=== PATIENT | female | born 1965 | race Caucasian/White ===

== ENCOUNTER 2016-06-17 15:21 | Emergency (ER) | payer MEDICARE, OTHER ==
[2016-06-17] MEDS ORDERED: DIPHENHYDRAMINE HCL 50 MG/ML VIAL IV ONE ×2 (15:30→18:16)
--- NOTE | 2016-06-17 15:35 | ER Document Report ---
ED Medical Screen (RME) - General Chief Complaint: Allergic Reaction Stated Complaint: DIFFICULTY BREATHING Mode of Arrival: Wheelchair Information source: Patient, Relative Notes: 51 y/o F presents to ED c/o headache, burning, throat, abd pain, and n/v. Reports had gastric sleeve procedure approximately 1 week ago and has not been able to take any of her psych medication. States was given injection of haldol by pcp today prior to developing symptoms. I have greeted and performed a rapid initial assessment of this patient. A comprehensive ED assessment and evaluation of the patient, analysis of test results and completion of the medical decision making process will be conducted by additional ED providers. TRAVEL OUTSIDE OF THE [place] IN LAST 30 DAYS: No - Related Data Allergies/Adverse Reactions: adhesive tape [Adhesive Tape] Allergy (Severe, Verified 06/17/16 15:25) Generalized rash Past Medical History - Social History Chew tobacco use (# tins/day): No Frequency of alcohol use: None Drug Abuse: None - Past Medical History Cardiac Medical History: Reports: Hx Heart Attack - pt. 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 Denies: Hx Pacemaker - Immunizations Hx Diphtheria, Pertussis, Tetanus Vaccination: No Physical Exam - Vital signs Vitals: Temp Pulse Resp BP Pulse Ox 97.6 F 113 H 20 113/73 99 06/17/16 15:25 06/17/16 15:25 06/17/16 15:25 06/17/16 15:25 06/17/16 15:25 - General General appearance: Alert In distress: None - Respiratory Respiratory status: No respiratory distress Breath sounds: Normal - Psychological Associated symptoms: Anxious Course - Vital Signs Vital signs: Temp Pulse Resp BP Pulse Ox 97.6 F 113 H 20 113/73 99 06/17/16 15:25 06/17/16 15:25 06/17/16 15:25 06/17/16 15:25 06/17/16 15:25
[2016-06-17] MEDS ORDERED: METOCLOPRAMIDE HCL INJ/PF 10 MG/2 ML SDV IV ONE (18:16)
[2016-06-17] MEDS ORDERED: NORMAL SALINE 1000 ML 1,000 ML IV PRN (18:16)
--- NOTE | 2016-06-17 18:16 | ER Document Report ---
ED General - General Chief Complaint: Allergic Reaction Stated Complaint: DIFFICULTY BREATHING Time seen by provider: 18:15 Mode of Arrival: Wheelchair Information source: Patient Notes: This is a 50-year-old female with a history of hypertension, diabetes, obesity ( status post gastric sleeve 2 weeks ago in [place] by Dr. Sapp), history of chronic pain (status post [employer] spinal cord stimulator implant), bipolar affective disorder (followed by [facility], Dr. Haddad). The patient presents to the emergency room with nausea and vomiting since having the gastric sleeve. Patient was seen in by the psychiatrist today and given a shot she felt short of breath and she was having some "burning in the back of her throat" and they were concerned about allergic reaction and she was transferred here. He shouldn't states she's not really been tolerating fluids and she feels dehydrated. TRAVEL OUTSIDE OF THE [place] IN LAST 30 DAYS: No - HPI Onset: Last week Onset/Duration: Gradual Quality of pain: Dull Severity: Moderate Pain Level: 2 Associated symptoms: Nausea, Vomiting. denies: Chills, Fever, Shortness of breath Exacerbated by: Denies Relieved by: Denies Similar symptoms previously: Yes Recently seen / treated by doctor: Yes - Related Data Allergies/Adverse Reactions: adhesive tape [Adhesive Tape] Allergy (Severe, Verified 06/17/16 15:25) Generalized rash Past Medical History - General Information source: Patient, Relative - Social History Smoking Status: Never Smoker Cigarette use (# per day): No Chew tobacco use (# tins/day): No Frequency of alcohol use: None Drug Abuse: None Lives with: Family Family History: Reviewed & Not Pertinent Patient has suicidal ideation: No Patient has homicidal ideation: No - Past Medical History Cardiac Medical History: Reports: Hx Heart Attack - pt. 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 Denies: Hx Pacemaker - Immunizations Hx Diphtheria, Pertussis, Tetanus Vaccination: No Review of Systems - Review of Systems Notes: Review of systems: Constitutional: Denies fever, chills. EENT: Denies ear pain, sinus tenderness, throat pain, throat swelling. Cardiovascular: Denies chest pain, palpitations, dyspnea or edema. Respiratory: Denies wheezing, cough, hemoptysis. Abdomen: See H&P Genitourinary: Denies dysuria, pyuria, hematuria, flank pain. Musculoskeletal: denies joint pain or swelling, denies back pain. Neurologic: Denies headache, photophobia, neck stiffness, weakness. Denies loss of bowel or bladder function. Denies saddle anesthesia. Skin: Denies rash, lesions. Physical Exam - Vital signs Vitals: Temp Pulse Resp BP Pulse Ox 97.6 F 113 H 20 113/73 99 06/17/16 15:25 06/17/16 15:25 06/17/16 15:25 06/17/16 15:25 06/17/16 15:25 Notes: Physical exam: GENERAL: 51-year-old female, alert and oriented 3, appears dehydrated. HEAD: Atraumatic, normocephalic. EYES: Pupils equal round and reactive to light, extraocular movements intact, sclera anicteric, conjunctiva are normal. ENT: TMs normal, nares patent, oropharynx clear without exudates. Moist mucous membranes. NECK: Normal range of motion, supple without lymphadenopathy or JVD. LUNGS: Breath sounds clear to auscultation bilaterally and equal. No wheezes rales or rhonchi. HEART: Regular rate and rhythm without murmurs, rubs or gallops. ABDOMEN: Soft, normoactive bowel sounds. Abdominal scars mildly erythematous, no fluctuance/pus discharge or any significant changes. No tenderness to palpation. No guarding, no rebound. No masses appreciated. EXTREMITIES: Normal range of motion, no pitting or edema. No clubbing or cyanosis. NEUROLOGICAL: Cranial nerves II through XII grossly intact. Normal speech, normal gait. PSYCH: Normal mood, normal affect. SKIN: Warm, Dry, normal turgor, no rashes or lesions noted. Course - Re-evaluation Re-evalutation: 06/17/16 21:23 Note: Patient reports decreased by mouth intake, nausea and vomiting. I did give her some IV fluids, IV antiemetics. Clinically, her abdomen was soft and there was no evidence of bowel obstruction. However, given the recent abdominal sleeve, we did do a CT and that shows no obstruction. Regarding the migraine: Patient started to complain of a headache after we started treated with IV fluids and nausea medicine for the vomiting. She was treated with IV morphine and that seemed to take her headache away. The plan will be to follow up with her surgeon as planned as well as her primary care doctor and her psychiatrist. - Vital Signs Vital signs: Temp Pulse Resp BP Pulse Ox 99.1 F 113 H 20 113/73 99 06/17/16 18:33 06/17/16 15:25 06/17/16 15:25 06/17/16 15:25 06/17/16 15:25 - Laboratory Result Diagrams: 06/17/16 18:30 06/17/16 18:30 Laboratory results interpreted by me: 06/17/16 06/17/16 18:30 18:30 WBC 11.9 H MCV 79 L MCH 26.8 L RDW 16.2 H Plt Count 549 H Glucose 297 H Calcium 11.9 H - Diagnostic Test Radiology reviewed: Image reviewed, Reports reviewed - CT of the abdomen shows no evidence of obstruction Discharge - Discharge Clinical Impression: dehydration, vomiting, migraine Condition: Stable Disposition: HOME, SELF-CARE Instructions: Nausea or Vomiting, Nonspecific ([facility]) Additional Instructions: As discussed: The CAT scan looked good tonight. There is no evidence of obstruction. Your labs looked okay. Your sugar was a little elevated. Recommendations: Rest, drink plenty of fluids (a little at a time), advance diet slowly. Take the Phenergan suppositories for nausea. Take the hydrocodone liquid for pain Follow-up with your surgeon as planned: Call for an earlier appointment Follow-up with your primary care doctor. Bring a copy of today's labs and CT report with you when you go see the surgeon and Dr. Erazo. Prescriptions: Hydrocodone/Acetaminophen [Hydrocodone-Apap Solution] 15 ml PO Q6HP PRN #90 solution PRN Reason: Promethazine HCl [Phenergan 25 mg Supp.rect] 1 supp WY Q6H #12 supp.rect Referrals: FEDERICO ERAZO MD [Primary Care Provider] - Follow up in 3-5 days
[2016-06-17 18:49] LABS: ABSOLUTE BASOPHILS # (AUTO) 0.1 10^3/uL (0.0-0.2); ABSOLUTE EOSINOPHILS # (AUTO) 0.2 10^3/uL (0.0-0.6); ABSOLUTE LYMPHOCYTES (AUTO) 3.7 10^3/uL (0.5-4.7); ABSOLUTE NEUT (AUTO) 6.8 10^3/uL (1.7-8.2); BASOPHILS % (AUTO) 1.1 % (0-2); EOSINOPHILS % (AUTO) 2.1 % (0-6); HEMATOCRIT 37.4 % (36.0-47.0); HEMOGLOBIN 12.7 g/dL (12.0-15.5); HGB HCT DIFFERENCE 0.7; LYMPHOCYTES % (AUTO) 31.2 % (13-45); MEAN CORPUSCULAR HEMOGLOBIN 26.8 pg (27.0-33.4); MEAN CORPUSCULAR HGB CONC 33.9 g/dL (32.0-36.0); MEAN CORPUSCULAR VOLUME 79 fl (80-97); MONOCYTES % (AUTO) 8.5 % (3-13); RED BLOOD COUNT 4.73 10^6/uL (3.72-5.28); RED CELL DISTRIBUTION WIDTH 16.2 % (11.5-14.0); SEGMENTED NEUTROPHILS % (AUTO) 57.1 % (42-78); WHITE BLOOD COUNT 11.9 10^3/uL (4.0-10.5)
[2016-06-17 19:06] LABS: ALANINE AMINOTRANSFERASE 20 U/L (9-52); ALBUMIN 3.9 g/dL (3.5-5.0); ALKALINE PHOSPHATASE 119 U/L (38-126); ANION GAP 14 (5-19); ASPARTATE AMINO TRANSFERASE 14 U/L (14-36); BLOOD UREA NITROGEN 18 mg/dL (7-20); CALCIUM 11.9 mg/dL (8.4-10.2); CARBON DIOXIDE 28 mmol/L (22-30); CHLORIDE 99 mmol/L (98-107); CREATININE RESULT 0.81 mg/dL (0.52-1.25); GLUCOSE 297 mg/dL (75-110); POTASSIUM 4.2 mmol/L (3.6-5.0); SODIUM 141.3 mmol/L (137-145)
[2016-06-17] MEDS ORDERED: ONDANSETRON HCL INJ/PF 4 MG/2 ML SDV IV ONE (19:14)
[2016-06-17] MEDS ORDERED: MORPHINE SULFATE 10 MG/ML INJ IV ONE ×2 (19:38→21:14)
--- NOTE | 2016-06-17 21:04 | EKG REPORT ---
SEVERITY:- BORDERLINE ECG - SINUS RHYTHM PROBABLE LEFT ATRIAL ABNORMALITY BORDERLINE R WAVE PROGRESSION, ANTERIOR LEADS : Confirmed by: Jose Mills MD 17-Jun-2016 21:03:08
[2016-06-17] MEDS ORDERED: PROMETHAZINE HCL 25 MG SUPP (4 SUPP/ER DISP) PR ONE (21:14)
[2016-06-17] MEDS ORDERED: PROMETHAZINE HCL 25 MG SUPP.RECT PR ONE (21:14)
[2016-06-18 02:28] VITALS: BP 154/78
== END 2016-06-17 22:55 | disposition home or self-care (01) ==
LOC: ER 15:21
DX: G43.909 Migraine, unspecified, not intractable, without status migrainosus (principal); E86.0 Dehydration; R11.2 Nausea with vomiting, unspecified; T78.40XA Allergy, unspecified, initial encounter; R06.02 Shortness of breath
CPT/HCPCS: 93005; 99285; 96361; 96374; 96375; 36415; 85025; 80053; 74176; 93010; J1200; A9270; J2765; J2270; J2405; J7030; J3490

== ENCOUNTER → 2016-07-04 | Outpatient (CLI) | payer MEDICARE, OTHER | LOC: OD 14:52 | PROVIDERS: ATTEND Family Medicine | DX: R05 Cough (principal) | CPT/HCPCS: 71020 ==

== ENCOUNTER 2017-05-20 15:09 | Emergency (ER) | payer MEDICARE, OTHER ==
--- NOTE | 2017-05-20 17:16 | ER Document Report ---
ED Medical Screen (RME) - General Chief Complaint: Flu Symptoms Stated Complaint: FLU SYMPTOMS Time Seen by Provider: 05/20/17 16:46 Mode of Arrival: Ambulatory Information source: Patient Notes: Patient is a 51 year old female with a history of depression presents to the emergency department complaining of flulike symptoms including chills, chest pain, abdominal pain, diarrhea and vomiting onset 3 days ago. Patient states that her chest pain only occurs when she is vomiting. Patient also complains of a low-grade fever of 99.8 and decreased appetite. TRAVEL OUTSIDE OF THE [place] IN LAST 30 DAYS: No - Related Data Allergies/Adverse Reactions: adhesive tape [Adhesive Tape] Allergy (Severe, Verified 05/20/17 15:12) Generalized rash Past Medical History - General Information source: Patient - Social History Chew tobacco use (# tins/day): No Frequency of alcohol use: None Drug Abuse: None - Past Medical History Cardiac Medical History: Reports: Hx Heart Attack - pt. 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 Psychiatric Medical History: Reports: Hx Bipolar Disorder, Hx Schizophrenia Past Surgical History: Reports: Hx Abdominal Surgery - gastrobypass in 12/05, Hx Hysterectomy, Hx Orthopedic Surgery - Immunizations Hx Diphtheria, Pertussis, Tetanus Vaccination: No Review of Systems - Review of Systems Constitutional: See HPI, Chills EENT: No symptoms reported Cardiovascular: See HPI, Chest pain Respiratory: No symptoms reported Gastrointestinal: See HPI, Abdominal pain, Diarrhea, Nausea, Vomiting Genitourinary: No symptoms reported Female Genitourinary: No symptoms reported Musculoskeletal: No symptoms reported Skin: No symptoms reported Hematologic/Lymphatic: No symptoms reported Neurological/Psychological: No symptoms reported -: Yes All other systems reviewed and negative Physical Exam - Vital signs Vitals: Temp Pulse Resp BP Pulse Ox 99.2 F 85 18 107/72 100 05/20/17 15:21 05/20/17 15:21 05/20/17 15:21 05/20/17 15:21 05/20/17 15:21 - Notes Notes: GENERAL: Alert, interacts well. No acute distress. HEAD: Normocephalic, atraumatic. EYES: Pupils equal, round, and reactive to light. Extraocular movements intact. ENT: Oral mucosa moist, tongue midline. Clear oropharynx. NECK: Full range of motion. Supple. Trachea midline. LUNGS: Clear to auscultation bilaterally, no wheezes, rales, or rhonchi. No respiratory distress. HEART: Regular rate and rhythm. No murmurs, gallops, or rubs. ABDOMEN: Soft, non-tender. Non-distended. Bowel sounds present in all 4 quadrants. EXTREMITIES: Moves all 4 extremities spontaneously. N NEUROLOGICAL: Alert and oriented x3. Normal speech. PSYCH: Normal affect, normal mood. SKIN: Warm, dry, normal turgor. No rashes or lesions noted. Course - Vital Signs Vital signs: Temp Pulse Resp BP Pulse Ox 99.2 F 85 18 107/72 100 05/20/17 15:21 05/20/17 15:21 05/20/17 15:21 05/20/17 15:21 05/20/17 15:21 - Laboratory Result Diagrams: 05/20/17 17:55 05/20/17 17:55 Scribe Documentation - Scribe Written by Travis:: Travis Maxwell, 05/20/2017 17:15 acting as scribe for :: Al
[2017-05-20] MEDS ORDERED: NORMAL SALINE 1000 ML 1,000 ML IV ONE (17:43)
[2017-05-20] MEDS ORDERED: ONDANSETRON HCL INJ/PF 4 MG/2 ML SDV IV ONE (17:44)
[2017-05-20 18:27] LABS: ALANINE AMINOTRANSFERASE 30 U/L (9-52); ALBUMIN 4.8 g/dL (3.5-5.0); ALKALINE PHOSPHATASE 109 U/L (38-126); ANION GAP 11 (5-19); ASPARTATE AMINO TRANSFERASE 20 U/L (14-36); BILIRUBIN,DIRECT 0.2 mg/dL (0.0-0.4); BILIRUBIN,TOTAL 0.8 mg/dL (0.2-1.3); BLOOD UREA NITROGEN 22 mg/dL (7-20); CALCIUM 10.9 mg/dL (8.4-10.2); CARBON DIOXIDE 27 mmol/L (22-30); CHLORIDE 101 mmol/L (98-107); GLUCOSE 253 mg/dL (75-110); MAGNESIUM 1.4 mg/dL (1.6-2.3); POTASSIUM 4.9 mmol/L (3.6-5.0); SODIUM 138.7 mmol/L (137-145); TOTAL PROTEIN 8.2 g/dL (6.3-8.2)
[2017-05-20 18:44] LABS: ABSOLUTE BASOPHILS # (AUTO) 0.1 10^3/uL (0.0-0.2); ABSOLUTE EOSINOPHILS # (AUTO) 0.1 10^3/uL (0.0-0.6); ABSOLUTE LYMPHOCYTES (AUTO) 4.3 10^3/uL (0.5-4.7); ABSOLUTE MONOCYTES (AUTO) 0.7 10^3/uL (0.1-1.4); ABSOLUTE NEUT (AUTO) 5.4 10^3/uL (1.7-8.2); BASOPHILS % (AUTO) 1.2 % (0-2); HEMATOCRIT 30.4 % (36.0-47.0); HEMOGLOBIN 9.2 g/dL (12.0-15.5); LYMPHOCYTES % (AUTO) 40.5 % (13-45); MEAN CORPUSCULAR HEMOGLOBIN 17.9 pg (27.0-33.4); MEAN CORPUSCULAR HGB CONC 30.3 g/dL (32.0-36.0); MONOCYTES % (AUTO) 6.8 % (3-13); PLATELET COUNT 480 10^3/uL (150-450); RED BLOOD COUNT 5.15 10^6/uL (3.72-5.28); RED CELL DISTRIBUTION WIDTH 17.2 % (11.5-14.0); SEGMENTED NEUTROPHILS % (AUTO) 50.5 % (42-78); TOTAL CELLS COUNTED % (AUTO) 100 %; WHITE BLOOD COUNT 10.7 10^3/uL (4.0-10.5)
[2017-05-20 19:12] LABS: ANISOCYTOSIS 1+; HYPOCHROMASIA 3+; MEAN CORPUSCULAR VOLUME 59 fl (80-97); PLATELET COMMENT ADEQUATE; POIKILOCYTOSIS SLIGHT; ROULEAUX SLIGHT; TARGET CELLS SLIGHT; TEAR DROP CELLS SLIGHT
[2017-05-20] MEDS: MORPHINE SULFATE 10 MG/ML INJ IV PRN ×2 (19:40→21:40)
[2017-05-20] MEDS ORDERED: PROCHLORPERAZINE EDISYLATE INJ 10 MG/2 ML VIAL IV ONE (20:06)
--- NOTE | 2017-05-20 20:09 | ER Document Report ---
ED General - General Chief Complaint: Flu Symptoms Stated Complaint: FLU SYMPTOMS Time Seen by Provider: 05/20/17 16:46 Mode of Arrival: Ambulatory Notes: Patient is a 51-year-old female with past medical history of gastric bypass surgery who presents with 3 days of nausea, vomiting and diarrhea. She is also felt feverish, achy with an associated cough. Nothing improves or worsens her symptoms. She does note a constant, diffuse body ache that has been unchanged since onset. She has had subjective fever at home. No known sick contacts. She denies a history of similar symptoms in the past. She has not seen her primary doctor regarding today's concerns. She denies any shortness of breath, headache, neck pain, weakness, numbness or syncope. She denies any localized abdominal pain. No melena, hematochezia or hemoptysis. TRAVEL OUTSIDE OF THE [place] IN LAST 30 DAYS: No - Related Data Allergies/Adverse Reactions: adhesive tape [Adhesive Tape] Allergy (Severe, Verified 05/20/17 15:12) Generalized rash Past Medical History - General Information source: Patient - Social History Smoking Status: Never Smoker Chew tobacco use (# tins/day): No Frequency of alcohol use: None Drug Abuse: None Lives with: Spouse/Significant other Family History: Reviewed & Not Pertinent Patient has suicidal ideation: No Patient has homicidal ideation: No - Past Medical History Cardiac Medical History: Reports: Hx Heart Attack - pt. 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 Eyes: Negative for visual changes. Cardiovascular: Negative for chest pain. Respiratory: Positive for cough Gastrointestinal: Negative for abdominal pain, positive for vomiting diarrhea Genitourinary: Negative for dysuria. Musculoskeletal: Negative for back pain. Skin: Negative for rash. Neurological: Negative for headaches, weakness or numbness. 10 point ROS negative except as marked above and in HPI. Physical Exam - Vital signs Vitals: Temp Pulse Resp BP Pulse Ox 99.2 F 85 18 107/72 100 05/20/17 15:21 05/20/17 15:21 05/20/17 15:21 05/20/17 15:21 05/20/17 15:21 Interpretation: Normal Notes: PHYSICAL EXAMINATION: GENERAL: Appears somewhat uncomfortable but in no acute distress HEAD: Atraumatic, normocephalic. EYES: Pupils equal round and reactive to light, extraocular movements intact, sclera anicteric, conjunctiva are normal. ENT: nares patent, oropharynx clear without exudates. Moderately dry mucous membranes. NECK: Normal range of motion, supple without lymphadenopathy LUNGS: Breath sounds clear to auscultation bilaterally and equal. No wheezes rales or rhonchi. HEART: Regular rate and rhythm without murmurs ABDOMEN: Soft, nontender, normoactive bowel sounds. No guarding, no rebound. No masses appreciated. Rectal: Brown stool, no gross blood or melena EXTREMITIES: Normal range of motion, no pitting or edema. No cyanosis. NEUROLOGICAL: No focal neurological deficits. Moves all extremities spontaneously and on command. PSYCH: Normal mood, normal affect. SKIN: Warm, Dry, normal turgor, no rashes or lesions noted. Course - Re-evaluation Re-evalutation: 05/20/17 20:07 Patient presents with cough, vomiting, diarrhea, and fever at home consistent with a flulike illness although our flu test here is negative. Sensitivity for this years flu assay is apparently 91-92%. Clinical history and exam is not consistent with an acute bacterial meningitis, encephalitis, pneumonia, there is no evidence of a cellulitis on examination. Patient likewise denies any urinary symptoms. Chest x-ray is clear without any evidence of an acute pneumonia. Patient does not have any focal abdominal tenderness to suggest an acute biliary pathology, acute appendicitis, acute mesenteric ischemia, bowel obstruction, bowel, or any other life-threatening acute intra-abdominal pathology as the etiology of the fever and additional symptoms today. Labs are otherwise unremarkable. Patient is tolerated oral intake without difficulty. Patient is noted to be with a microcytic anemia that appears to be quite acute. She has had a gastric bypass surgery within the past 1 year and admits to noncompliance with iron supplementation. She denies any melena, hematochezia, or hematemesis. rectal exam without any evidence of gross blood or melena. She has been instructed to take her iron supplementation as directed and follow- up with her primary care doctor for formal iron testing. Vitals at time of reassessment are within normal limits. At this time will discharge with return precautions and follow-up recommendations. Verbal discharge instructions given a the bedside and opportunity for questions given. Medication warnings reviewed. Patient is in agreement with this plan and has verbalized understanding of return precautions and the need for primary care follow-up in the next 24-72 hours. - Vital Signs Vital signs: Temp Pulse Resp BP Pulse Ox 98.9 F 84 20 110/65 98 05/20/17 21:48 05/20/17 21:48 05/20/17 21:48 05/20/17 21:48 05/20/17 21:48 - Laboratory Result Diagrams: 05/20/17 17:55 05/20/17 17:55 Laboratory results interpreted by me: 05/20/17 05/20/17 17:55 17:55 WBC 10.7 H Hgb 9.2 L Hct 30.4 L MCV 59 L MCH 17.9 L MCHC 30.3 L RDW 17.2 H Plt Count 480 H BUN 22 H Glucose 253 H Calcium 10.9 H Magnesium 1.4 L - Diagnostic Test Radiology reviewed: Image reviewed, Reports reviewed Radiology results interpreted by me: 05/21/17 04:15 Chest x-ray: No acute infiltrate or pneumothorax Discharge - Discharge Clinical Impression: Vomiting and diarrhea, Microcytic anemia, Cough Fever Qualifiers: Fever type: unspecified Qualified Code(s): R50.9 - Fever, unspecified Condition: Good Disposition: HOME, SELF-CARE Additional Instructions: Your symptoms are likely due to a viral infection either influenza or similar virus. The only treatment at this time is supportive care including drinking plenty of fluids, Tylenol and ibuprofen, as well as nausea medicines which you will be sent home with. Your symptoms will likely last for 7-10 days. Please return to the emergency department immediately if you become confused, have persistent vomiting, pass out, have severe headache, or have any other symptoms that are worrisome to you. Follow-up with your primary care doctor in the next several days. You also needs follow-up with your primary doctor regarding the anemia as we discussed. You should be taking your iron supplements as prescribed. Referrals: EDUARD ERAZO, [Primary Care Provider] - Follow up as needed
--- NOTE | 2017-05-20 21:01 | RADIOLOGY REPORT (SQ) ---
EXAM DESCRIPTION: CHEST SINGLE VIEW COMPLETED DATE/TIME: 05/20/2017 8:29 pm REASON FOR STUDY: fever, cough COMPARISON: 2017. NUMBER OF VIEWS: One view. TECHNIQUE: Single frontal radiographic view of the chest acquired. LIMITATIONS: None. FINDINGS: LUNGS AND PLEURA: No opacities, masses or pneumothorax. No pleural effusion. MEDIASTINUM AND HILAR STRUCTURES: No masses. Contour normal. HEART AND VASCULAR STRUCTURES: Heart normal in size. Normal vasculature. BONES: No acute findings. HARDWARE: Spinal stimulator leads in place, as before. OTHER: No other significant finding. IMPRESSION: NO SIGNIFICANT RADIOGRAPHIC FINDING IN THE CHEST. TECHNICAL DOCUMENTATION: JOB ID: [id number] [facility] [employer]- All Rights Reserved
[2017-05-20] MEDS ORDERED: ONDANSETRON ODT 4 MG TAB (6 TAB/ER DISP) PO PRN (21:08)
[2017-05-20 21:15] LABS: A TYPE INFLUENZA AG NEGATIVE (NEGATIVE); B INFLUENZA AG NEGATIVE (NEGATIVE)
[2017-05-20 21:49] VITALS: BP 110/65
[2017-05-21 14:38] LABS: PATH REVIEW PATHOLOGIST REVIEWED
== END 2017-05-20 21:48 | disposition home or self-care (01) ==
LOC: ER 15:09
DX: R11.2 Nausea with vomiting, unspecified (principal); R19.7 Diarrhea, unspecified; D50.9 Iron deficiency anemia, unspecified; Z98.84 Bariatric surgery status; I25.2 Old myocardial infarction; Z90.710 Acquired absence of both cervix and uterus
CPT/HCPCS: 96376; 99284; 96361; 96374; 96375; 36415; 83735; 85025; 82272; 80053; 87804; 71045; J2270; J0780; J2405; J7030; A9270

== ENCOUNTER → 2017-07-02 | Outpatient (CLI) | payer MEDICARE, OTHER ==
--- NOTE | 2017-07-02 12:32 | WOMENS IMAGING REPORT ---
EXAM DESCRIPTION: BILAT SCREENING MAMMO W/CAD COMPLETED DATE/TIME: 07/02/2017 11:59 am REASON FOR STUDY: ROUTINE SCREENING;Z12.31 Z12.31 ENCNTR SCREEN MAMMOGRAM FOR MALIGNANT NEOPLASM OF LUPE COMPARISON: May 2013 and November 2010 TECHNIQUE: Standard craniocaudal and mediolateral oblique views of each breast recorded using [employer] l acquisition. LIMITATIONS: None. FINDINGS: No masses, calcifications or architectural distortion. No areas of suspicion. Read with the assistance of CAD. .[facility] - R2 Cenova Version 1.3 .[facility] - R2 Cenova Version 1.3 .[facility] - R2 Cenova Version 2.4 .[facility] [place] - R2 Cenova Version 2.4 .[facility] - R2 [employer] Version 9.2 IMPRESSION: NORMAL MAMMOGRAM. BIRADS 1. BREAST DENSITY: c. The breasts are heterogeneously dense, which may obscure small masses. BIRAD: 1 NEGATIVE RECOMMENDATION: ROUTINE SCREENING COMMENT: The patient has been notified of the results by letter per SA requirements. Additional no tification policies are in place for contacting patient with suspicious or incomplete findings. Quality ID #[id number]: The [employer] recommends an annual screening mammogram for women aged 40 years or over. This facility utilizes a reminder system to ensure that all patients receive reminder letters, and/or direct phone calls for appointments. This includes reminders for routine scr eening mammograms, diagnostic mammograms, or other Breast Imaging Interventions when appropriate. Th is patient will be placed in the appropriate reminder system. The [employer] (ACR) has developed recommendations for screening MRI of the breast s in certain patient populations, to be used in conjunction with mammography. Breast MRI surveillanc e may be appropriate for women with more than 20% lifetime risk of developing breast cancer as deter mined by genetic testing, significant family history of the disease, or history of mantle radiation f or Hodgkins Disease. ACR Practice Guidelines 2008. TECHNICAL DOCUMENTATION: FINDING NUMBER: (1) ASSESSMENT: (1) JOB ID: [id number] [employer]- All Rights Reserved Reading location - IP/workstation name: [facility]
== END ==
LOC: WI 10:02
PROVIDERS: ATTEND Physician Assistant Medical
DX: Z12.31 Encounter for screening mammogram for malignant neoplasm of breast (principal)
CPT/HCPCS: 77067

== ENCOUNTER → 2017-09-22 | Outpatient (CLI) | payer MEDICARE, OTHER ==
[2017-09-22 08:44] LABS: ABSOLUTE BASOPHILS # (AUTO) 0.1 10^3/uL (0.0-0.2); ABSOLUTE EOSINOPHILS # (AUTO) 0.3 10^3/uL (0.0-0.6); ABSOLUTE LYMPHOCYTES (AUTO) 4.1 10^3/uL (0.5-4.7); ABSOLUTE MONOCYTES (AUTO) 0.8 10^3/uL (0.1-1.4); ABSOLUTE NEUT (AUTO) 5.4 10^3/uL (1.7-8.2); BASOPHILS % (AUTO) 1.2 % (0-2); EOSINOPHILS % (AUTO) 2.7 % (0-6); HEMATOCRIT 30.5 % (36.0-47.0); HEMOGLOBIN 9.2 g/dL (12.0-15.5); LYMPHOCYTES % (AUTO) 38.4 % (13-45); MEAN CORPUSCULAR HEMOGLOBIN 17.7 pg (27.0-33.4); MEAN CORPUSCULAR HGB CONC 30.1 g/dL (32.0-36.0); MONOCYTES % (AUTO) 7.4 % (3-13); PLATELET COUNT 428 10^3/uL (150-450); RED CELL DISTRIBUTION WIDTH 19.2 % (11.5-14.0); SEGMENTED NEUTROPHILS % (AUTO) 50.3 % (42-78); TOTAL CELLS COUNTED % (AUTO) 100 %; WHITE BLOOD COUNT 10.7 10^3/uL (4.0-10.5)
[2017-09-22 08:59] LABS: ANION GAP 11 (5-19); BLOOD UREA NITROGEN 16 mg/dL (7-20); CARBON DIOXIDE 27 mmol/L (22-30); CHLORIDE 101 mmol/L (98-107); GLUCOSE 351 mg/dL (75-110); POTASSIUM 4.5 mmol/L (3.6-5.0); SODIUM 139.2 mmol/L (137-145)
[2017-09-22 09:09] LABS: MEAN CORPUSCULAR VOLUME 59 fl (80-97)
[2017-09-22 09:13] LABS: ANISOCYTOSIS 2+; HYPOCHROMASIA 4+; OVALOCYTES 1+; PLATELET COMMENT ADEQUATE; POIKILOCYTOSIS 1+
--- NOTE | 2017-09-22 09:44 | RADIOLOGY REPORT (SQ) ---
EXAM DESCRIPTION: KUB COMPLETED DATE/TIME: 09/22/2017 8:36 am REASON FOR STUDY: UPPER ABDOMINAL PAIN E11.9 TYPE 2 DIABETES MELLITUS WITHOUT COMPLICATIONS F41.9 ANXIETY DISORDER, UNSPECIFIED L53.8 OTHER SPECIFIED ERYTHEMATOUS CONDITIONS COMPARISON: None. NUMBER OF VIEWS: One view. TECHNIQUE: Supine radiographic image of the abdomen acquired. LIMITATIONS: None. FINDINGS: BOWEL GAS PATTERN: Normal bowel gas pattern. No dilated loops. CALCIFICATIONS: No suspicious calcifications. SOFT TISSUES: No gross mass or suggestion of organomegaly. HARDWARE: Neural stimulating catheter with the tips overlying the T6-T7 and T9-T10 disc spaces. Mul tiple surgical sutures in the left upper- mid quadrant of the abdomen. BONES: Hardware posterior fusion L5-S1. No acute fracture. No worrisome bone lesions. OTHER: No other significant finding. IMPRESSION: NO RADIOGRAPHIC EVIDENCE FOR ACUTE ABDOMINAL DISEASE. TECHNICAL DOCUMENTATION: JOB ID: [id number] [employer]- All Rights Reserved Reading location - IP/workstation name: [email or web address]
== END ==
LOC: OD 08:08
PROVIDERS: ATTEND Physician Assistant Medical
DX: E11.9 Type 2 diabetes mellitus without complications (principal); F41.9 Anxiety disorder, unspecified; L53.8 Other specified erythematous conditions; R10.10 Upper abdominal pain, unspecified
CPT/HCPCS: 36415; 74018; 80048; 85025

== ENCOUNTER → 2018-03-01 | Outpatient (CLI) | payer MEDICARE, OTHER ==
[2018-03-01 11:45] LABS: RBCS (WET MOUNT) RARE RBCS SEEN; T.VAGINALIS (WET MOUNT) NO TRICHOMONAS SEEN; WBCS (WET MOUNT) 1+ WBCS SEEN; YEAST (WET MOUNT) NO YEAST SEEN
== END ==
LOC: LAB 11:20
PROVIDERS: ATTEND Nurse Practitioner Family
DX: B37.3 Candidiasis of vulva and vagina (principal); R30.0 Dysuria
CPT/HCPCS: 87086; 87088; 87186; 87210

== ENCOUNTER → 2018-04-09 | Outpatient (CLI) | payer MEDICARE, OTHER ==
[2018-04-09 11:30] LABS: ABSOLUTE BASOPHILS # (AUTO) 0.1 10^3/uL (0.0-0.2); ABSOLUTE EOSINOPHILS # (AUTO) 0.5 10^3/uL (0.0-0.6); ABSOLUTE LYMPHOCYTES (AUTO) 3.7 10^3/uL (0.5-4.7); ABSOLUTE MONOCYTES (AUTO) 0.9 10^3/uL (0.1-1.4); ABSOLUTE NEUT (AUTO) 5.9 10^3/uL (1.7-8.2); BASOPHILS % (AUTO) 1.3 % (0-2); EOSINOPHILS % (AUTO) 4.2 % (0-6); HEMATOCRIT 28.3 % (36.0-47.0); HEMOGLOBIN 8.7 g/dL (12.0-15.5); LYMPHOCYTES % (AUTO) 33.3 % (13-45); MEAN CORPUSCULAR HEMOGLOBIN 18.4 pg (27.0-33.4); MEAN CORPUSCULAR HGB CONC 30.7 g/dL (32.0-36.0); MEAN CORPUSCULAR VOLUME 60 fl (80-97); MONOCYTES % (AUTO) 7.7 % (3-13); PLATELET COUNT 607 10^3/uL (150-450); RED BLOOD COUNT 4.73 10^6/uL (3.72-5.28); RED CELL DISTRIBUTION WIDTH 19.6 % (11.5-14.0); SEGMENTED NEUTROPHILS % (AUTO) 53.5 % (42-78); TOTAL CELLS COUNTED % (AUTO) 100 %
[2018-04-09 11:53] LABS: ALANINE AMINOTRANSFERASE 7 U/L (9-52); ALBUMIN 4.3 g/dL (3.5-5.0); ALKALINE PHOSPHATASE 78 U/L (38-126); ANION GAP 11 (5-19); ASPARTATE AMINO TRANSFERASE 20 U/L (14-36); BILIRUBIN,DIRECT 0.3 mg/dL (0.0-0.4); BILIRUBIN,TOTAL 0.3 mg/dL (0.2-1.3); BLOOD UREA NITROGEN 23 mg/dL (7-20); CALCIUM 9.8 mg/dL (8.4-10.2); CARBON DIOXIDE 27 mmol/L (22-30); CHLORIDE 102 mmol/L (98-107); GLUCOSE 252 mg/dL (75-110); POTASSIUM 5.1 mmol/L (3.6-5.0); SODIUM 139.7 mmol/L (137-145); TOTAL PROTEIN 7.4 g/dL (6.3-8.2)
[2018-04-09 12:13] LABS: ANISOCYTOSIS 2+; HYPOCHROMASIA 3+; OVALOCYTES 1+; PLATELET COMMENT INCREASED; POIKILOCYTOSIS 1+
== END ==
LOC: OD 10:20
PROVIDERS: ATTEND Physician Assistant
DX: F31.31 Bipolar disorder, current episode depressed, mild (principal); Z79.899 Other long term (current) drug therapy
CPT/HCPCS: 36415; 80053; 80164; 83036; 85025

== ENCOUNTER → 2018-06-02 | Outpatient (CLI) | payer MEDICARE, OTHER | LOC: OD 11:42 | PROVIDERS: ATTEND Family Medicine | DX: R19.7 Diarrhea, unspecified (principal); D64.9 Anemia, unspecified | CPT/HCPCS: 82272; 87045; 87205; 87493 ==

== ENCOUNTER 2018-06-29 20:31 | Emergency (ER) | payer MEDICARE, OTHER ==
[2018-06-29 20:45] VITALS: BP 104/65
--- NOTE | 2018-06-30 00:26 | ER Document Report ---
ED GI/ - General Chief Complaint: Abdominal Pain/Diarrhea Stated Complaint: SIDE PAIN,DIAHRREA Time Seen by Provider: 06/30/18 00:25 Primary Care Provider: HARRIETT AU MD [Primary Care Provider] - Follow up as needed Mode of Arrival: Ambulatory Information source: Patient Notes: HISTORY OF PRESENT ILLNESS: Patient is a 53-year-old female with a past medical history of ulcerative colitis who presents with nonbloody/watery diarrhea for the past month and left lower quadrant abdominal pain beginning 1 week ago. Location: Left lower quadrant Onset: Gradual Alleviation: None Provocation: Movement, having a bowel movement Quality: Aching, burning Radiation: None Severity: Mild to moderate Timing: Distant History of abdominal surgery: Yes Associated symptoms: No fevers or chills, no cough or congestion, no bloody diarrhea Last bowel movement: "Several times today" REVIEW OF SYSTEMS: CONSTITUTIONAL : Denies fever or chills, no sweats. Denies recent illness. EENT: Denies eye, ear, throat, or mouth pain or symptoms. Denies nasal or sinus congestion. CARDIOVASCULAR: Denies chest pain. Denies swelling of the legs. RESPIRATORY: Denies cough, cold, or chest congestion. Denies shortness of breath or difficulty breathing. Denies wheezing. GASTROINTESTINAL: Positive for abdominal pain. Positive for nonbloody/watery diarrhea. GENITOURINARY: Denies difficulty urinating, painful urination, burning, frequency, or blood in urine. FEMALE GENITOURINARY: Denies vaginal bleeding, abnormal or irregular periods. MUSCULOSKELETAL: Denies neck or back pain or joint pain or swelling. SKIN: Denies rash or skin lesions. HEMATOLOGIC : Denies easy bruising or bleeding. LYMPHATIC: Denies swollen, enlarged glands. NEUROLOGICAL: Denies altered mental status or loss of consciousness. Denies headache. Denies weakness or paralysis or loss of use of either side. Denies problems with gait or speech. Denies sensory or motor loss. PSYCHIATRIC: Denies anxiety or stress or depression. All other systems reviewed and negative. PHYSICAL EXAMINATION: GENERAL: Well-appearing, well-nourished and in no acute distress. HEAD: Atraumatic, normocephalic. No scalp deformity, depression, or crepitance. EYES: Pupils are 3 mm and equal/round/reactive to light, extraocular movements intact, sclera anicteric, conjunctiva are normal. ENT: Nares patent bilaterally, oropharynx. Moist mucous membranes. No tonsil hypertrophy. NECK: Normal range of motion, supple without lymphadenopathy. LUNGS: Breath sounds present, equal, and clear to auscultation bilaterally. No wheezes, rales, or rhonchi. HEART: Regular rate and rhythm without murmurs, rubs, or gallops. 2+ peripheral pulses. Normal capillary refill. ABDOMEN: Soft and nondistended, moderate left lower quadrant tenderness without peritoneal signs. Normoactive bowel sounds. No guarding, no rebound. No masses appreciated. BACK: Normal contour, no midline tenderness. Rectal exam deferred. GENITAL/PELVIC: Deferred. EXTREMITIES: Normal range of motion, no pitting or edema. No cyanosis. NEUROLOGICAL: No focal neurological deficits. Moves all extremities spontaneously and on command. PSYCH: Normal mood, normal affect. No suicidal thoughts/ideations. No homocidal thoughts/ideations. No hallucinations. SKIN: Warm, dry, normal turgor, no rashes or lesions noted. ASSESSMENT AND PLAN: This patient is a 53-year-old female who presents with abdominal pain with a history of ulcerative colitis. Patient is nontoxic-appearing and is afebrile which makes significant pathology such as intra-abdominal abscess less likely but possible. 1. Will obtain labs, urine, and CT scan of the abdomen/pelvis. 2. Will IV morphine and fluids. TRAVEL OUTSIDE OF THE [place] IN LAST 30 DAYS: No - Related Data Allergies/Adverse Reactions: adhesive tape [Adhesive Tape] Allergy (Severe, Verified 05/20/17 15:12) Generalized rash Past Medical History - General Information source: Patient - Social History Smoking Status: Never Smoker Chew tobacco use (# tins/day): No Frequency of alcohol use: None Drug Abuse: None Lives with: Family Family History: Reviewed & Not Pertinent Patient has suicidal ideation: No Patient has homicidal ideation: No - Past Medical History Cardiac Medical History: Reports: Hx Heart Attack - pt. states she had a mild 2011 Pulmonary Medical History: Reports: None EENT Medical History: Reports: None Neurological Medical History: Reports: None Endocrine Medical History: Reports: None Renal/ Medical History: Reports: None. 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 Skin Medical History: Reports None Psychiatric Medical History: Reports: Hx Bipolar Disorder, Hx Schizophrenia Traumatic Medical History: Reports: None Infectious Medical History: Reports: None Past Surgical History: Reports: Hx Abdominal Surgery - gastrobypass in 12/05, Hx Hysterectomy, Hx Orthopedic Surgery - Immunizations Immunizations up to date: Yes Hx Diphtheria, Pertussis, Tetanus Vaccination: No History of Influenza Vaccine for 01/2017 - 06/2017 Season: No Physical Exam - Vital signs Vitals: Temp Pulse Resp BP Pulse Ox 98.6 F 98 16 104/65 99 06/29/18 20:43 06/29/18 20:43 06/29/18 20:43 06/29/18 20:43 06/29/18 20:43 Course - Re-evaluation Re-evalutation: 06/30/18 03:10 Patient has decided to leave and does not want CT scan or IV antibiotics. I have agreed to discharge the patient with oral antibiotics as long as she follows up with her milk and cream grader as soon as possible, to which the patient voices agreeing with. - Vital Signs Vital signs: Temp Pulse Resp BP Pulse Ox 98.6 F 98 16 104/65 99 06/29/18 20:43 06/29/18 20:43 06/29/18 20:43 06/29/18 20:43 06/29/18 20:43 - Laboratory Result Diagrams: 06/30/18 00:15 06/30/18 00:15 Laboratory results interpreted by me: 06/30/18 06/30/18 06/30/18 00:15 00:15 00:15 WBC 20.1 H Hgb 8.0 L Hct 25.8 L MCV 63 L MCH 19.7 L MCHC 31.2 L RDW 23.4 H Plt Count 521 H Monocytes % (Manual) 2 L Abs Neuts (Manual) 16.1 H Sodium 135.4 L Carbon Dioxide 21 L Glucose 66 L Calcium 7.6 L AST 47 H Alkaline Phosphatase 198 H Total Protein 5.7 L Albumin 2.5 L Ur Leukocyte Esterase LARGE H Discharge - Discharge Clinical Impression: Colitis Abdominal pain Qualifiers: Abdominal location: left lower quadrant Qualified Code(s): R10.32 - Left lower quadrant pain Condition: Good Disposition: HOME, SELF-CARE Instructions: Abdominal Pain ([facility]), Ulcerative Colitis ([facility]) Additional Instructions: You have been evaluated in the Emergency Department for abdominal pain. While here, you had blood work and it is now safe to be discharged home. Please follow-up with your milk and cream grader as instructed as soon as you can. Return to the Emergency Department if you experience worsening pain, high fevers, bloody diarrhea, or any other concerning symptoms. Prescriptions: Hydrocodone/Acetaminophen [Rangely 5-325 mg Tablet] 1 tab PO Q6HP PRN #20 tablet PRN Reason: For Pain Ondansetron [Zofran Odt 4 mg Tablet] 1 tab PO Q6HP PRN #10 tab.rapdis PRN Reason: For Nausea/Vomiting Amox Tr/Potassium Clavulanate [Augmentin 875-125 mg Tablet] 1 tab PO BID #20 tablet Referrals: HARRIETT AU MD [Primary Care Provider] - Follow up as needed Print Language: Slovak
[2018-06-30 00:39] LABS: HEMATOCRIT 25.8 % (36.0-47.0); MEAN CORPUSCULAR HEMOGLOBIN 19.7 pg (27.0-33.4); MEAN CORPUSCULAR HGB CONC 31.2 g/dL (32.0-36.0); MEAN CORPUSCULAR VOLUME 63 fl (80-97); PLATELET COUNT 521 10^3/uL (150-450); RED BLOOD COUNT 4.09 10^6/uL (3.72-5.28); RED CELL DISTRIBUTION WIDTH 23.4 % (11.5-14.0); WHITE BLOOD COUNT 20.1 10^3/uL (4.0-10.5)
[2018-06-30 00:48] LABS: APPEARANCE,URINE SLIGHTLY-CLOUDY; BILIRUBIN,URINE NEGATIVE (NEGATIVE); COLOR,URINE YELLOW; GLUCOSE, URINE NEGATIVE (NEGATIVE); KETONES,URINE NEGATIVE (NEGATIVE); LEUKOCYTE ESTERASE,URINE LARGE (NEGATIVE); NITRITE,URINE NEGATIVE (NEGATIVE); PROTEIN,URINE NEGATIVE (NEGATIVE); URINE SPECIFIC GRAVITY 1.015; UROBILINOGEN,URINE NEGATIVE mg/dL (<2.0)
[2018-06-30 00:52] LABS: ALANINE AMINOTRANSFERASE 35 U/L (9-52); ALBUMIN 2.5 g/dL (3.5-5.0); ALKALINE PHOSPHATASE 198 U/L (38-126); ANION GAP 7 (5-19); ASPARTATE AMINO TRANSFERASE 47 U/L (14-36); BILIRUBIN,DIRECT 0.2 mg/dL (0.0-0.4); BILIRUBIN,TOTAL 0.5 mg/dL (0.2-1.3); BLOOD UREA NITROGEN 20 mg/dL (7-20); CALCIUM 7.6 mg/dL (8.4-10.2); CARBON DIOXIDE 21 mmol/L (22-30); CHLORIDE 107 mmol/L (98-107); LIPASE 36.7 U/L (23-300); POTASSIUM 3.9 mmol/L (3.6-5.0); SODIUM 135.4 mmol/L (137-145); TOTAL PROTEIN 5.7 g/dL (6.3-8.2)
[2018-06-30 00:55] LABS: ABSOLUTE LYMPHOCYTES# (MANUAL) 3.6 10^3/uL (0.5-4.7); ABSOLUTE MONOCYTES # (MANUAL) 0.4 10^3/uL (0.1-1.4); ABSOLUTE NEUTROPHILS# (MANUAL) 16.1 10^3/uL (1.7-8.2); BAND NEUTROPHILS % (MANUAL) 4 % (3-5); BASOPHILS % (MANUAL) 0 % (0-2); EOSINOPHILS % (MANUAL) 0 % (0-6); LYMPHOCYTES % (MANUAL) 18 % (13-45); MONOCYTES % (MANUAL) 2 % (3-13); SEGMENTED NEUTROPHILS % (MAN) 76 % (42-78); TOTAL CELLS COUNTED 100; TOXIC GRANULATION 1+; TOXIC VACUOLATION PRESENT
[2018-06-30 00:56] LABS: GLUCOSE 66 mg/dL (75-110)
[2018-06-30 01:01] LABS: ANISOCYTOSIS 3+; BURR CELLS SLIGHT; POIKILOCYTOSIS 3+
[2018-06-30 01:02] LABS: OVALOCYTES 1+; PLATELET COMMENT ADEQUATE; SCHISTOCYTES SLIGHT; TARGET CELLS 2+; TEAR DROP CELLS 1+
== END 2018-06-30 03:13 | disposition home or self-care (01) ==
LOC: ER 20:31
DX: K52.9 Noninfective gastroenteritis and colitis, unspecified (principal); R10.32 Left lower quadrant pain; Z90.710 Acquired absence of both cervix and uterus; Z98.84 Bariatric surgery status; I25.2 Old myocardial infarction
CPT/HCPCS: 36415; 80053; 81001; 82962; 83690; 85025; 99284

== ENCOUNTER → 2018-07-01 | Outpatient (CLI) | payer MEDICARE, OTHER ==
[2018-07-01 12:36] LABS: HEMATOCRIT 29.3 % (36.0-47.0); HEMOGLOBIN 9.4 g/dL (12.0-15.5); MEAN CORPUSCULAR HEMOGLOBIN 19.9 pg (27.0-33.4); MEAN CORPUSCULAR HGB CONC 31.9 g/dL (32.0-36.0); MEAN CORPUSCULAR VOLUME 62 fl (80-97); PLATELET COUNT 605 10^3/uL (150-450); RED CELL DISTRIBUTION WIDTH 22.6 % (11.5-14.0); WHITE BLOOD COUNT 20.5 10^3/uL (4.0-10.5)
[2018-07-01 12:54] LABS: ALANINE AMINOTRANSFERASE 36 U/L (9-52); ALBUMIN 2.8 g/dL (3.5-5.0); ALKALINE PHOSPHATASE 268 U/L (38-126); ANION GAP 13 (5-19); ASPARTATE AMINO TRANSFERASE 20 U/L (14-36); BILIRUBIN,DIRECT 0.3 mg/dL (0.0-0.4); BILIRUBIN,TOTAL 0.7 mg/dL (0.2-1.3); BLOOD UREA NITROGEN 16 mg/dL (7-20); CALCIUM 8.3 mg/dL (8.4-10.2); CARBON DIOXIDE 20 mmol/L (22-30); CHLORIDE 106 mmol/L (98-107); GLUCOSE 142 mg/dL (75-110); POTASSIUM 4.2 mmol/L (3.6-5.0); SODIUM 138.5 mmol/L (137-145); TOTAL PROTEIN 5.9 g/dL (6.3-8.2)
[2018-07-01 12:59] LABS: ABSOLUTE LYMPHOCYTES# (MANUAL) 2.1 10^3/uL (0.5-4.7); ABSOLUTE MONOCYTES # (MANUAL) 0.4 10^3/uL (0.1-1.4); BAND NEUTROPHILS % (MANUAL) 1 % (3-5); BASOPHILS % (MANUAL) 0 % (0-2); EOSINOPHILS % (MANUAL) 0 % (0-6); LYMPHOCYTES % (MANUAL) 10 % (13-45); MONOCYTES % (MANUAL) 2 % (3-13); SEGMENTED NEUTROPHILS % (MAN) 87 % (42-78); TOTAL CELLS COUNTED 100
[2018-07-01 13:02] LABS: TOXIC GRANULATION 1+
[2018-07-01 13:03] LABS: ANISOCYTOSIS 2+; PLATELET COMMENT INCREASED; POLYCHROMASIA SLIGHT; TARGET CELLS 3+
== END ==
LOC: OD 11:50
PROVIDERS: ATTEND Physician Assistant
DX: R19.7 Diarrhea, unspecified (principal); R82.90 Unspecified abnormal findings in urine
CPT/HCPCS: 36415; 80053; 85025; 87086; 87088; 87186; 87493

== ENCOUNTER → 2018-07-03 | Outpatient (CLI) | payer MEDICARE, OTHER ==
--- NOTE | 2018-07-03 13:21 | WOMENS IMAGING REPORT ---
EXAM DESCRIPTION: 3D SCREENING MAMMO BILAT COMPLETED DATE/TIME: 07/03/2018 10:59 am REASON FOR STUDY: ROUTINE BILATERAL SCREENING;Z12.31 Z12.31 ENCNTR SCREEN MAMMOGRAM FOR MALIGNANT N EOPLASM OF LUPE COMPARISON: 2010, 2013, 2017 TECHNIQUE: Standard craniocaudal and mediolateral oblique views of each breast recorded using digita l acquisition and breast tomosynthesis. LIMITATIONS: None. FINDINGS: No masses, calcifications or architectural distortion. No areas of suspicion. Read with the assistance of CAD. .[facility] - R2 Cenova Version 1.3 .[facility] Imaging - R2 Cenova Version 2.1 .[facility] Imaging - R2 Cenova Version 2.4 .[facility] - R2 Cenova Version 2.4 .[facility] - R2 Landscape Technician Version 9.2 IMPRESSION: NORMAL MAMMOGRAM. BIRADS 1. BREAST DENSITY: b. There are scattered areas of fibroglandular density. BIRAD: 1 NEGATIVE RECOMMENDATION: ROUTINE SCREENING COMMENT: The patient has been notified of the results by letter per SA requirements. Additional no tification policies are in place for contacting patient with suspicious or incomplete findings. Quality ID #[id number]: The [employer] recommends an annual screening mammogram for women aged 40 years or over. This facility utilizes a reminder system to ensure that all patients receive reminder letters, and/or direct phone calls for appointments. This includes reminders for routine scr eening mammograms, diagnostic mammograms, or other Breast Imaging Interventions when appropriate. Th is patient will be placed in the appropriate reminder system. The [employer] (ACR) has developed recommendations for screening MRI of the breast s in certain patient populations, to be used in conjunction with mammography. Breast MRI surveillanc e may be appropriate for women with more than 20% lifetime risk of developing breast cancer as deter mined by genetic testing, significant family history of the disease, or history of mantle radiation f or Hodgkins Disease. ACR Practice Guidelines 2008. DBT Technology DBT is a type of tomographic mammography. With conventional mammography, overlapping breast tissue ma y make lesions difficult to detect, even with good compression. DBT uses an x-ray tube that rotates a round the breast, taking images at different angles. These images are then combined to create thin sl ices of the breast that the radiologist can view as a 3D reconstruction. The Communication [employer] unit can perform full-field digital mammograms (2D imaging); or DBT (3D imaging); or both, in a combination mode that quickly performs both the mammogram and the tomosynthesis scan while the breast is still compressed. PQRS 6045F: Fluoroscopic imaging is not utilized for breast tomosynthesis. TECHNICAL DOCUMENTATION: FINDING NUMBER: (1) ASSESSMENT: (1) JOB ID: [id number] [employer]- All Rights Reserved Reading location - IP/workstation name: [email or web address]
== END ==
LOC: WI 10:13
PROVIDERS: ATTEND Physician Assistant
DX: Z12.31 Encounter for screening mammogram for malignant neoplasm of breast (principal)
CPT/HCPCS: 77063; 77067

== ENCOUNTER → 2018-07-13 | Outpatient (CLI) | payer MEDICARE, OTHER ==
[2018-07-13 13:12] LABS: HEMATOCRIT 30.8 % (36.0-47.0); HEMOGLOBIN 9.8 g/dL (12.0-15.5); MEAN CORPUSCULAR HEMOGLOBIN 24.4 pg (27.0-33.4); PLATELET COUNT 699 10^3/uL (150-450); RED BLOOD COUNT 4.03 10^6/uL (3.72-5.28); RED CELL DISTRIBUTION WIDTH 37.6 % (11.5-14.0); WHITE BLOOD COUNT 12.4 10^3/uL (4.0-10.5)
[2018-07-13 13:21] LABS: ALANINE AMINOTRANSFERASE 46 U/L (9-52); ALBUMIN 3.1 g/dL (3.5-5.0); ALKALINE PHOSPHATASE 239 U/L (38-126); ANION GAP 7 (5-19); ASPARTATE AMINO TRANSFERASE 36 U/L (14-36); BILIRUBIN,DIRECT 0.2 mg/dL (0.0-0.4); BILIRUBIN,TOTAL 0.4 mg/dL (0.2-1.3); BLOOD UREA NITROGEN 14 mg/dL (7-20); C-REACTIVE PROTEIN 30.2 mg/L (<10.0); CALCIUM 9.1 mg/dL (8.4-10.2); CARBON DIOXIDE 28 mmol/L (22-30); CHLORIDE 102 mmol/L (98-107); GLUCOSE 106 mg/dL (75-110); POTASSIUM 5.4 mmol/L (3.6-5.0); SODIUM 136.9 mmol/L (137-145); TOTAL PROTEIN 6.4 g/dL (6.3-8.2)
[2018-07-13 13:33] LABS: MEAN CORPUSCULAR VOLUME 76 fl (80-97)
[2018-07-14 13:05] LABS: ACTIN (SMOOTH MUSCLE) ANTIBODY 11 Units (0-19); MITOCHONDRIAL (M2) ANTIBODY <20.0 Units (0.0-20.0)
[2018-07-15 05:39] LABS: HEPATITIS B CORE AB IGM Negative (Negative); HEPATITIS B CORE AB TOT Negative (Negative); HEPATITIS BE AB Negative (Negative); HEPATITIS BE ANTIGEN Negative (Negative); HEPATITIS C VIRUS AB 0.3 s/co ratio (0.0-0.9); HEPATITS B SURFACE ANTIGEN Negative (Negative)
[2018-07-15 07:22] LABS: HEPATITIS B SURFACE AB QUAL Reactive (.)
== END ==
LOC: OD 11:31
PROVIDERS: ATTEND Internal Medicine Gastroenterology
DX: R19.7 Diarrhea, unspecified (principal); R19.4 Change in bowel habit; R10.32 Left lower quadrant pain; R94.5 Abnormal results of liver function studies
CPT/HCPCS: 36415; 80048; 80076; 85027; 86038; 86140; 86235; 86256; 86704; 86705; 86706; 86707; 86803; 87340; 87350

== ENCOUNTER → 2018-11-04 | Outpatient (CLI) | payer MEDICARE, OTHER ==
--- NOTE | 2018-11-04 09:24 | RADIOLOGY REPORT (SQ) ---
EXAM DESCRIPTION: CT ABD/PELVIS WITH IV ORAL COMPLETED DATE/TIME: 11/04/2018 8:26 am REASON FOR STUDY: GENERALIZED ABD PAIN (R10.84), ABN ALKALINE PHOSPHATE (R74.8), DYSURIA (R30 R10.84 GENERALIZED ABDOMINAL PAIN COMPARISON: 2017. TECHNIQUE: CT scan of the abdomen and pelvis performed with intravenous and oral contrast using aye candido scanning technique with dynamic intravenous contrast injection. Images reviewed with lung, soft t issue, and bone windows. Reconstructed coronal and sagittal MPR images reviewed. Delayed images for e valuation of the urinary system also acquired. All images stored on PACS. All CT scanners at this facility use dose modulation, iterative reconstruction, and/or weight based d osing when appropriate to reduce radiation dose to as low as reasonably achievable (ALARA). [facility]: Dose Right [facility]: CareDose [facility]: Dose Right [facility]: Teradose 4D [facility]: Epunchit CONTRAST TYPE AND DOSE: contrast/concentration: Isovue 350.00 mg/ml; Total Contrast Delivered: 66.0 ml; Total Saline Delivered: 48.0 ml RENAL FUNCTION: Creatinine 0.8 RADIATION DOSE: CT Rad equipment meets quality standard of care and radiation dose reduction techniq ues were employed. CTDIvol: 5.1 - 6.7 mGy. DLP: 661 mGy-cm.. LIMITATIONS: None. FINDINGS: LOWER CHEST: 5 mm nodule right lower lobe image 2. This area is not included on the prior study. LIVER: Normal size. No masses. No dilated ducts. SPLEEN: Normal size. No focal lesions. PANCREAS: No masses. No significant calcifications. No adjacent inflammation or peripancreatic fluid collections. Pancreatic duct not dilated. GALLBLADDER: No identified stones by CT criteria. No inflammatory changes to suggest cholecystitis. ADRENAL GLANDS: No significant masses or asymmetry. RIGHT KIDNEY AND URETER: No solid masses. No significant calcification. No hydronephrosis or hydroure ter. LEFT KIDNEY AND URETER: No solid masses. No significant calcification. No hydronephrosis or hydrouret er. AORTA AND VESSELS: No aneurysm. No dissection. Renal arteries, SMA, celiac without stenosis. No veno us clot. RETROPERITONEUM: No retroperitoneal adenopathy, hemorrhage or masses. BOWEL AND PERITONEAL CAVITY: Large amount of stool throughout the colon. No wall thickening or infla mmatory process detected. Status post gastric bypass. No small bowel obstruction. No evidence of a scites. APPENDIX: Normal. PELVIS: No significant masses. Normal bladder. No free fluid. ABDOMINAL WALL: No masses. No hernias. BONES: Postoperative and degenerative changes in the lumbar spine. OTHER: Epidural spinal leads project up into the thoracic region full extent not imaged. IMPRESSION: 1. Stool retention. 2. Right lower lobe pulmonary nodule measuring 5 mm. FLEISCHNER CRITERIA FOR FOLLOW-UP OF PULMONARY NODULES Incidentally detected new nodules in persons 35 or older. HIGH RISK: History of smoking or other known risk factors. <6mm single solid nodule: LOW RISK: no routine followup. HIGH RISK: optional CT 12 mo. TECHNICAL DOCUMENTATION: JOB ID: [id number] Quality ID # [id number]: Final reports with documentation of one or more dose reduction techniques (e.g., Au tomated exposure control, adjustment of the mA and/or kV according to patient size, use of iterative reconstruction technique) 2010 [employer]- All Rights Reserved Reading location - IP/workstation name: [email or web address]
== END ==
LOC: RAD 07:44
PROVIDERS: ATTEND Physician Assistant
DX: K59.00 Constipation, unspecified (principal); R10.84 Generalized abdominal pain; R74.8 Abnormal levels of other serum enzymes; R30.0 Dysuria; R14.0 Abdominal distension (gaseous); R91.1 Solitary pulmonary nodule
CPT/HCPCS: 74177; 82565

== ENCOUNTER → 2018-12-01 | Outpatient (CLI) | payer MEDICARE, OTHER ==
[2018-12-01 09:38] LABS: HEMATOCRIT 36.7 % (36.0-47.0); HEMOGLOBIN 12.3 g/dL (12.0-15.5); MEAN CORPUSCULAR HEMOGLOBIN 29.4 pg (27.0-33.4); MEAN CORPUSCULAR HGB CONC 33.4 g/dL (32.0-36.0); MEAN CORPUSCULAR VOLUME 88 fl (80-97); PLATELET COUNT 396 10^3/uL (150-450); RED BLOOD COUNT 4.17 10^6/uL (3.72-5.28); RED CELL DISTRIBUTION WIDTH 15.4 % (11.5-14.0); WHITE BLOOD COUNT 9.2 10^3/uL (4.0-10.5)
[2018-12-01 10:04] LABS: ALBUMIN 4.1 g/dL (3.5-5.0); ALKALINE PHOSPHATASE 111 U/L (38-126); ASPARTATE AMINO TRANSFERASE 23 U/L (14-36); BILIRUBIN,DIRECT 0.3 mg/dL (0.0-0.4); BILIRUBIN,TOTAL 0.4 mg/dL (0.2-1.3); C-REACTIVE PROTEIN 5.7 mg/L (<10.0); TOTAL PROTEIN 6.9 g/dL (6.3-8.2)
== END ==
LOC: OD 08:41
PROVIDERS: ATTEND Internal Medicine Gastroenterology
DX: R94.5 Abnormal results of liver function studies (principal); R10.9 Unspecified abdominal pain
CPT/HCPCS: 36415; 80076; 86140

== ENCOUNTER 2018-12-08 06:06 | Day surgery (SDC) | payer MEDICARE, OTHER ==
[2018-12-01 09:34] LABS: HEMATOCRIT 36.7 % (36.0-47.0); HEMOGLOBIN 12.3 g/dL (12.0-15.5); MEAN CORPUSCULAR HEMOGLOBIN 29.4 pg (27.0-33.4); MEAN CORPUSCULAR HGB CONC 33.4 g/dL (32.0-36.0); MEAN CORPUSCULAR VOLUME 88 fl (80-97); PLATELET COUNT 396 10^3/uL (150-450); RED BLOOD COUNT 4.17 10^6/uL (3.72-5.28); RED CELL DISTRIBUTION WIDTH 15.4 % (11.5-14.0); WHITE BLOOD COUNT 9.2 10^3/uL (4.0-10.5)
[2018-12-01 09:38] LABS: APPEARANCE,URINE CLEAR; BILIRUBIN,URINE NEGATIVE (NEGATIVE); COLOR,URINE YELLOW; GLUCOSE, URINE NEGATIVE (NEGATIVE); KETONES,URINE NEGATIVE (NEGATIVE); LEUKOCYTE ESTERASE,URINE TRACE (NEGATIVE); NITRITE,URINE NEGATIVE (NEGATIVE); PROTEIN,URINE NEGATIVE (NEGATIVE); URINE SPECIFIC GRAVITY 1.019; UROBILINOGEN,URINE NEGATIVE mg/dL (<2.0)
--- NOTE | 2018-12-01 09:40 | RADIOLOGY REPORT (SQ) ---
EXAM DESCRIPTION: CHEST PA/LATERAL COMPLETED DATE/TIME: 12/01/2018 9:05 am REASON FOR STUDY: PRE-OP COMPARISON: None. EXAM PARAMETERS: NUMBER OF VIEWS: two views TECHNIQUE: Digital Frontal and Lateral radiographic views of the chest acquired. RADIATION DOSE: NA LIMITATIONS: none FINDINGS: LUNGS AND PLEURA: No opacities, masses or pneumothorax. No pleural effusion. MEDIASTINUM AND HILAR STRUCTURES: No masses or contour abnormalities. HEART AND VASCULAR STRUCTURES: Heart normal size. No evidence for failure. BONES: No acute findings. HARDWARE: Spinal stimulator overlies midthoracic spine. OTHER: No other significant finding. IMPRESSION: NO SIGNIFICANT RADIOGRAPHIC FINDING IN THE CHEST. TECHNICAL DOCUMENTATION: JOB ID: [id number]- All Rights Reserved Reading location - IP/workstation name: [email or web address]
[2018-12-01 09:42] LABS: INTERNATIONAL RATION (INR) 0.94; PROTHROMBIN TIME 12.6 SEC (11.4-15.4)
[2018-12-01 09:45] LABS: PARTIAL THROMBOPLASTIN TIME 29.5 SEC (23.5-35.8)
--- NOTE | 2018-12-01 09:45 | EKG REPORT ---
SEVERITY:- NORMAL ECG - SINUS RHYTHM : Confirmed by: Andrew Orr 01-Dec-2018 09:44:26
[~2018-12-08 06:06] MED LIST: CEFAZOLIN 1 GM/D5W RTU 1 GM/50 ML RTUPB IV ONE; CEFAZOLIN 1 GM/D5W RTU 1 GM/50 ML RTUPB IV PRN; LACTATED RINGERS 1000 ML IV PRN; LIDOCAINE 0.5% INJ-PF (5 MG/ML) 50 ML SDV SUBCUT PRN
[2018-12-08] MEDS ORDERED: MIDAZOLAM 2 MG/2 ML INJ ONE ×2 (06:35→07:07)
[2018-12-08] MEDS ORDERED: FENTANYL CITRATE INJ/PF 100 MCG/2 ML AMPUL ONE ×2 (06:35→09:12)
[2018-12-08] MEDS ORDERED: LIDOCAINE 2% INJ (20 MG/ML) 20 ML MDV ONE (06:36)
[2018-12-08] MEDS ORDERED: PROPOFOL INJ 200 MG/20 ML VIAL IV ONE (06:36)
[2018-12-08] MEDS ORDERED: LIDOCAINE 1% INJ-PF (10 MG/ML) 30 ML SDV ONE (07:38)
[2018-12-08] MEDS ORDERED: BUPIVACAINE HCL 0.25% /EPINEPHRINE INJ/PF 30 ML SDV ONE (07:39)
[2018-12-08] MEDS ORDERED: SODIUM BICARBONATE 4.2% INJ (2.5 MEQ/5 ML) VIAL ONE (07:39)
[2018-12-08] MEDS ORDERED: BUPIVACAINE HCL 0.5%/EPI 1:200000 INJ 1.8 ML CARTRIDGE ONE (07:39)
[2018-12-08] MEDS ORDERED: MEPERIDINE HCL/PF INJ 25 MG/1 ML DISP.SYRIN IV PRN (07:50)
[2018-12-08] MEDS ORDERED: PROMETHAZINE HCL INJ 25 MG/1 ML VIAL IV PRN ×2 (07:50)
[2018-12-08] MEDS ORDERED: DIPHENHYDRAMINE HCL 50 MG/ML VIAL IV PRN (07:50)
[2018-12-08] MEDS ORDERED: MORPHINE SULFATE 10 MG/ML INJ IV PRN (07:50)
[2018-12-08] MEDS ORDERED: OXYCODONE-ACETAMINOPHEN 5-325 MG TABLET PO PRN ×3 (07:50→10:30)
[2018-12-08] MEDS ORDERED: FENTANYL CITRATE INJ/PF 100 MCG/2 ML AMPUL IV PRN ×3 (07:50)
[2018-12-08] MEDS ORDERED: LIDOCAINE 1% INJ (10 MG/ML) 10 ML MDV INJ ONE (08:25)
[2018-12-08] MEDS ORDERED: LIDOCAINE 1%/EPINEPHRINE INJ 20 ML VIAL INJ ONE (08:26)
[2018-12-08] MEDS ORDERED: CEFAZOLIN INJ 1 GM VIAL ONE (09:02)
--- NOTE | 2018-12-08 09:40 | OPERATIVE REPORT E ---
Operative Report NAME: GITA FOSTER : 1965 AGE: 53Y DATE OF SURGERY: 12/08/2018 ROOM: PREOPERATIVE DIAGNOSIS: END OF BATTERY LIFE OF SCS IMPLANT. POSTOPERATIVE DIAGNOSIS: END OF BATTERY LIFE OF SCS IMPLANT. OPERATION: 1. Replacement of spinal cord stimulator and implantable pulse generator. 2. Revision of battery pocket. SURGEON: NOLBERTO CORDOVA M.D. ASSISTANTS: None. ANESTHESIA: MAC with sedation. PREOPERATIVE ANTIBIOTICS: Ancef 1 g given prior to incision. IV FLUIDS: 500 mL of balanced crystalloid solution. COMPLICATIONS: None. ESTIMATED BLOOD LOSS: 5 mL. SPECIMENS REMOVED: Old implantable pulse generator was discarded. OPERATIVE INDICATIONS: The patient is 53-year-old female who has had an indwelling spinal cord stimulator system for a number of years. Her battery that is in place currently has come to its end of life and needs replacement. Risks and benefits of the procedure were discussed with patient in detail including but not limited to bleeding, bruising, infection, injury to nerves, arteries, veins, the necessity to replace the entire system including the spinal cord stimulator leads, including a midline incision, loss of bowel or bladder function, paralysis, and potentially even . The patient expressed understanding and agreed to proceed. OPERATIVE DETAIL: The patient was accompanied by Anesthesia staff to the operative suite where she was placed in the prone position. All pressure points were checked and padded. Standard ASA lines and monitors were applied. The patient was prepped and draped in a sterile fashion using chlorhexidine and gluconate solution and an Ioban drape. The previously marked implantable pulse generator site was visualized and marked. This was in the right buttock region. The skin was anesthetized after a timeout procedure as per [facility] standard. The skin was anesthetized using 1% lidocaine using a 25 gauge needle. Deeper tissues were infiltrated with 0.25% bupivacaine with 1:100,000 epinephrine. Incision was made using a 15 blade scalpel and the battery was easily exposed. The battery was delivered from the current pocket site. The leads were removed using a hex wrench and then were reattached to the new implantable pulse generator. The leads were secured using a hex wrench and then impedances were tested by the [employer] artist representative in the room and all were determined to be excellent. Attention was turned to the pocket which notable was larger than need be for the new battery. Two 0-Mersilene sutures were placed along the upper margin of the pocket to close this down. Subsequently, the pocket was copiously irrigated with dilute Betadine solution. The implantable pulse generators were returned to the revised pocket. An additional round of irrigation was performed at this point. Closure then ensued with 3-0 Vicryl suture in interrupted fashion using vertical mattress sutures. The skin was then closed following this with Dermabond tape and glue. The patient tolerated the procedure well and was accompanied to the postanesthesia recovery unit in stable condition. She will follow up in 24 hours at [facility] for further evaluation. DICTATING PHYSICIAN: NOLBERTO CORDOVA M.D. [id number] PHY#: [id number] ID: [id number] JOB#: [id number] ACCT: [id number] cc:NOLBERTO CORDOVA M.D. >
[2018-12-08] MEDS ORDERED: ONDANSETRON HCL INJ/PF 4 MG/2 ML SDV IV PRN (10:00)
[2018-12-08] MEDS ORDERED: OXYCODONE-ACETAMINOPHEN 5-325 MG TABLET ONE (10:04)
[2018-12-08 11:35] VITALS: BP 117/70
[2018-12-08] MEDS ORDERED: CEFAZOLIN 1 GM/D5W RTU 1 GM/50 ML RTUPB IV SCH (18:00)
== END 2018-12-08 11:05 | disposition home or self-care (01) ==
LOC: OROUT 06:06
PROVIDERS: ATTEND Pain Medicine Interventional Pain Medicine
DX: G89.4 Chronic pain syndrome (principal); M54.16 Radiculopathy, lumbar region; Z79.01 Long term (current) use of anticoagulants; I10 Essential (primary) hypertension; E11.9 Type 2 diabetes mellitus without complications; Z79.899 Other long term (current) drug therapy
CPT/HCPCS: 93005; 36415; 82962; 85027; 85610; 85730; 81001; 71046; 93010; 00300; 63685; C1820; J2250; J3490 ×5; J0690 ×2; J3010; A9270; J2704; 300

== ENCOUNTER → 2019-07-21 | Outpatient (CLI) | payer MEDICARE, OTHER ==
[2019-07-21 13:13] LABS: ABSOLUTE BASOPHILS # (AUTO) 0.1 10^3/uL (0.0-0.2); ABSOLUTE EOSINOPHILS # (AUTO) 0.4 10^3/uL (0.0-0.6); ABSOLUTE LYMPHOCYTES (AUTO) 2.5 10^3/uL (0.5-4.7); ABSOLUTE MONOCYTES (AUTO) 1.1 10^3/uL (0.1-1.4); ABSOLUTE NEUT (AUTO) 5.8 10^3/uL (1.7-8.2); BASOPHILS % (AUTO) 0.9 % (0-2); EOSINOPHILS % (AUTO) 3.6 % (0-6); HEMATOCRIT 39.8 % (36.0-47.0); HEMOGLOBIN 13.6 g/dL (12.0-15.5); LYMPHOCYTES % (AUTO) 25.4 % (13-45); MEAN CORPUSCULAR HEMOGLOBIN 29.1 pg (27.0-33.4); MEAN CORPUSCULAR HGB CONC 34.1 g/dL (32.0-36.0); MEAN CORPUSCULAR VOLUME 85 fl (80-97); MONOCYTES % (AUTO) 11.5 % (3-13); PLATELET COUNT 456 10^3/uL (150-450); RED BLOOD COUNT 4.66 10^6/uL (3.72-5.28); RED CELL DISTRIBUTION WIDTH 13.5 % (11.5-14.0); SEGMENTED NEUTROPHILS % (AUTO) 58.6 % (42-78); TOTAL CELLS COUNTED % (AUTO) 100 %; WHITE BLOOD COUNT 9.8 10^3/uL (4.0-10.5)
[2019-07-21 13:33] LABS: ALBUMIN 4.3 g/dL (3.5-5.0); ALKALINE PHOSPHATASE 97 U/L (38-126); ANION GAP 9 (5-19); ASPARTATE AMINO TRANSFERASE 25 U/L (14-36); BILIRUBIN,DIRECT 0.3 mg/dL (0.0-0.4); BILIRUBIN,TOTAL 0.5 mg/dL (0.2-1.3); BLOOD UREA NITROGEN 24 mg/dL (7-20); CALCIUM 9.7 mg/dL (8.4-10.2); CARBON DIOXIDE 27 mmol/L (22-30); CHLORIDE 103 mmol/L (98-107); GLUCOSE 166 mg/dL (75-110); POTASSIUM 5.4 mmol/L (3.6-5.0); TOTAL PROTEIN 7.5 g/dL (6.3-8.2)
--- NOTE | 2019-07-21 13:38 | RADIOLOGY REPORT (SQ) ---
EXAM DESCRIPTION: CHEST PA/LATERAL IMAGES COMPLETED DATE/TIME: 07/21/2019 1:12 pm REASON FOR STUDY: COUGH COMPARISON: 12/01/2018 EXAM PARAMETERS: NUMBER OF VIEWS: two views TECHNIQUE: Digital Frontal and Lateral radiographic views of the chest acquired. RADIATION DOSE: NA LIMITATIONS: none FINDINGS: LUNGS AND PLEURA: No opacities, masses or pneumothorax. No pleural effusion. MEDIASTINUM AND HILAR STRUCTURES: No masses or contour abnormalities. HEART AND VASCULAR STRUCTURES: Heart normal size. No evidence for failure. BONES: No acute findings. HARDWARE: Partially visualized spinal stimulator hardware overlies midthoracic spine. OTHER: No other significant finding. IMPRESSION: NO SIGNIFICANT RADIOGRAPHIC FINDING IN THE CHEST. TECHNICAL DOCUMENTATION: JOB ID: [id number] [employer]- All Rights Reserved Reading location - IP/workstation name: [email or web address]
[2019-07-21 13:41] LABS: A TYPE INFLUENZA AG NEGATIVE (NEGATIVE); B INFLUENZA AG NEGATIVE (NEGATIVE)
== END ==
LOC: OD 12:33
PROVIDERS: ATTEND Physician Assistant
DX: R05 Cough (principal)
CPT/HCPCS: 71046; 80053; 85025; 87804

== ENCOUNTER → 2019-07-28 | Outpatient (CLI) | payer MEDICARE, OTHER ==
--- NOTE | 2019-07-28 12:27 | ER RDC ASSESSMENT REPORT ---
Intake - In the Last 14 days Have you traveled outside [place]?: No Worked in Healthcare?: No - Symptoms Subjective Fever([place] feverish): Yes Chills: Yes Muscule Aches: Yes Runny Nose: No Sore Throat: Yes --How many day(s)?: Has had a sore throat for 3 days Cough (New or worsening chronic cough): Yes --How many day(s)?: Reports has had a dry cough for about a week Shortness of breath: Yes Nausea or Vomiting: No Headache: Yes Abdominal Pain: Yes Diarrhea(3 or more loose stools in last 24 hours): No - Do you have any of the following Chronic lung disease: Asthma or emphysema or COPD: No Cystic Fibrosis: No Diabetes: Yes High Blood Pressure: No Cardiovascular Disease: No Chronic Kidney Disease: No Chronic Liver Disease: No Chronic blood disorder like Sickle Cell Disease: No Weak immune system due to disease or medication: Yes Immune System Comment: 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 Reports has been having respiratory symptoms since July 20. Has reported a fever of 101.4 on Friday and sore throat for three days. The cough, reported as dry, for a week and feels SOB when coughs. Has contacted PCP Dr. Ford. Seen in office and today started with [place] eye to the left eye. Spouse has been sick with respiratory illness for several weeks now progressed to PN and is also being tested for COVID today. - Related Data Allergies/Adverse Reactions: adhesive tape [Adhesive Tape] Allergy (Severe, Verified 12/08/18 06:33) Generalized rash Past Medical History - Social History Smoking Status: Never Smoker Family History: Reviewed & Not Pertinent - Past Medical History Cardiac Medical History: Reports: Hx Heart Attack - pt. states she had a mild 2011 Pulmonary Medical History: Neurological Medical History: Renal/ Medical History: Denies: Hx Peritoneal Dialysis GI Medical History: Reports: Hx Ulcerative Colitis Musculoskeletal Medical History: Reports Hx Arthritis - spine Psychiatric Medical History: Reports: Hx Bipolar Disorder, Hx Schizophrenia Past Surgical History: Reports: Hx Abdominal Surgery - gastrobypass in 12/05, Hx Hysterectomy, Hx Orthopedic Surgery. Denies: Hx Pacemaker Physical Exam - General General appearance: Appears well, Alert In distress: None Notes: PHYSICAL EXAMINATION: GENERAL: Well-appearing and in no acute distress. HEAD: Atraumatic, normocephalic. EYES: sclera anicteric, conjunctiva are normal. Slight redness to left eye no active drainage noted. ENT: nares patent. Moist mucous membranes. NECK: Normal range of motion, supple without lymphadenopathy LUNGS: CTAB and equal. No wheezes rales or rhonchi. Resp even and unlabored. Lung sounds clear. HEART: Regular rate and rhythm without murmurs ABDOMEN: Soft, nontender, normal bowel sounds, no guarding. EXTREMITIES: No cyanosis. NEUROLOGICAL: Normal speech. PSYCH: Normal mood, normal affect. SKIN: Warm, Dry, normal turgor, no rashes or lesions noted Diagnostic Results Laboratory Results: Patient informed of negative rapid strep and negative rapid flu results. Pending strep culture. Covid testing results. Patient provided information regarding COVID to include: As a person under investigation for Covid 19, the [place] department of Health and Human Services, division of public health advises you to adhere to the following guidance until your test results are reported to you. If your test result is positive, you will receive additional information from your provider and your local health department at that time. Remain at home until you are cleared by the health provider or public health authorities. Keep a log of visitors to your home, notify any visitors to your home of your isolation status. If you plan to move to a new address or leave the county, notify the local health department in your County. Call your doctor or seek care if you have an urgent medical need. Before seeking medical care, call ahead to get instructions from the provider before arriving at the medical office clinic or hospital. Notify them that you are being tested for the virus that causes Covid 19 so that arrangements can be made, as necessary, to prevent transmission to others in the healthcare setting. Next, notify the local health department in your county. If a medical emergency arises and you need to call 911, inform the first responders that you are being tested for the virus that causes Covid 19. Next, notify the local health department in your county. Patient Education/Counseling Counseling/Education: Patient presents with upper respiratory symptoms worrisome for possible Covid 19. Patient does not have emergency worring symptoms such as difficulty breathing, shortness of breath, chest pain, pressure, confusion or cyanosis. Patient appears suitable for discharge. Patient's vital signs are stable and patient is nontoxic in appearance. Good return precautions have been discussed with patient, patient verbalized understanding and is agreeable with discharge plan of care at this time. Continue to follow up with Dr. Ford for persistent or worsening symptoms. RDC Discharge - Discharge Clinical Impression: COVID - 19 SCREENING Upper respiratory infection Qualifiers: URI type: unspecified URI Qualified Code(s): J06.9 - Acute upper respiratory infection, unspecified Condition: Stable Disposition: Home; Selfcare
[2019-07-28 12:31] VITALS: BP 98/53
[2019-07-28 13:05] LABS: A TYPE INFLUENZA AG NEGATIVE (NEGATIVE); B INFLUENZA AG NEGATIVE (NEGATIVE)
== END ==
LOC: RDC 11:27
PROVIDERS: ATTEND Nurse Practitioner Family
DX: J06.9 Acute upper respiratory infection, unspecified (principal); Z20.828 Contact with and (suspected) exposure to other viral communicable diseases; R50.9 Fever, unspecified; J02.9 Acute pharyngitis, unspecified; R05 Cough; R06.02 Shortness of breath; R51 Headache; R10.9 Unspecified abdominal pain; Z98.84 Bariatric surgery status; I25.2 Old myocardial infarction
CPT/HCPCS: 87070; 87880; 87635; 87804; G0463; 99211

== ENCOUNTER 2019-09-25 23:25 | Emergency (ER) | payer OTHER, MEDICARE ==
[2019-09-25 23:32] VITALS: BP 103/42
--- NOTE | 2019-09-25 23:46 | ER Document Report ---
ED Medical Screen (RME) - General Stated Complaint: POSSIBLE ALLERGIC REACTION Time Seen by Provider: 09/25/19 23:34 Primary Care Provider: HARRIETT AU MD [Primary Care Provider] - Follow up as needed Notes: HPI: 54-year-old female presenting with a painful burning itchy rash in the left groin region with radiation of pain down the left thigh over the last 24 hours. No fever. No history of prior similar rash PHYSICAL EXAMINATION: Limited examination by patient body habitus and positioning and clothing. There appears to be a raised erythematous rash with some blistering through the left lower abdomen and inguinal crease region I have greeted and performed a rapid initial assessment of this patient. A comprehensive ED assessment and evaluation of the patient, analysis of test results and completion of medical decision making process will be conducted by an additional ED providers. TRAVEL OUTSIDE OF THE [place] IN LAST 30 DAYS: No - Related Data Allergies/Adverse Reactions: adhesive tape [Adhesive Tape] Allergy (Severe, Verified 12/08/18 06:33) Generalized rash Past Medical History - Past Medical History Cardiac Medical History: Reports: Hx Heart Attack - pt. 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 Denies: Hx Pacemaker - Immunizations Immunizations up to date: Yes Hx Diphtheria, Pertussis, Tetanus Vaccination: No Physical Exam - Vital signs Vitals: Temp Pulse Resp BP Pulse Ox 98.6 F 94 18 103/42 L 95 09/25/19 23:32 09/25/19 23:32 09/25/19 23:32 09/25/19 23:32 09/25/19 23:32 Course - Vital Signs Vital signs: Temp Pulse Resp BP Pulse Ox 98.6 F 94 18 103/42 L 95 09/25/19 23:32 09/25/19 23:32 09/25/19 23:32 09/25/19 23:32 09/25/19 23:32 Doctor's Discharge - Discharge Referrals: HARRIETT AU MD [Primary Care Provider] - Follow up as needed
[2019-09-26] MEDS ORDERED: ACYCLOVIR 800 MG TABLET PO ONE (00:51)
[2019-09-26] MEDS ORDERED: HYDROCODONE/ACETAMINOPHEN 5-325 MG (6 TAB/ER DISP) PO PRN (00:52)
[2019-09-26] MEDS ORDERED: HYDROCODONE/ACETAMINOPHEN 5-325 MG TABLET PO ONE (00:52)
[2019-09-26] MEDS ORDERED: ACYCLOVIR 800 MG TABLET ONE (01:13)
--- NOTE | 2019-09-26 03:57 | ER Document Report ---
Entered by MAGALIE RUEDA SCRIBE 09/26/19 0051 Acting as scribe for:CHRISTY WELLS IV, MD ED Skin Rash/Insect Bite/Abscs - General Chief Complaint: Skin Problem Stated Complaint: POSSIBLE ALLERGIC REACTION Time Seen by Provider: 09/25/19 23:34 Primary Care Provider: HARRIETT AU MD [Primary Care Provider] - 09/27/19 Mode of Arrival: Wheelchair Information source: Patient Notes: This 54 year old female patient presents to the ED today with complaint of a painful, itchy, burning rash to the left groin region that started yesterday. P atient states that the pain radiates down her LLE. She reports that she is concerned about a possible allergic reaction due to a recent lamictal administration. Denies prior history of similar rash. Denies fever or chills. TRAVEL OUTSIDE OF THE [place] IN LAST 30 DAYS: No - Related Data Allergies/Adverse Reactions: adhesive tape [Adhesive Tape] Allergy (Severe, Verified 12/08/18 06:33) Generalized rash Past Medical History - General Information source: Patient - Social History Smoking Status: Never Smoker Cigarette use (# per day): No Chew tobacco use (# tins/day): No Smoking Education Provided: No Frequency of alcohol use: None Drug Abuse: None Lives with: Spouse/Significant other Family History: Reviewed & Not Pertinent Patient has suicidal ideation: No Patient has homicidal ideation: No - Past Medical History Cardiac Medical History: Reports: Hx Heart Attack - pt. states she had a mild 2011 GI Medical History: Reports: Hx Ulcerative Colitis Musculoskeletal Medical History: Reports Hx Arthritis - spine Psychiatric Medical History: Reports: Hx Bipolar Disorder, Hx Schizophrenia Past Surgical History: Reports: Hx Gastric Bypass Surgery - 12/05, Hx Hysterectomy, Hx Orthopedic Surgery - Immunizations Immunizations up to date: Yes Hx Diphtheria, Pertussis, Tetanus Vaccination: No Review of Systems - Review of Systems Constitutional: See HPI. denies: Chills, Fever EENT: No symptoms reported Cardiovascular: No symptoms reported Respiratory: No symptoms reported Gastrointestinal: No symptoms reported Genitourinary: No symptoms reported Female Genitourinary: No symptoms reported Musculoskeletal: See HPI, Muscle pain - Left groin and LLE Skin: See HPI, Rash Hematologic/Lymphatic: No symptoms reported Neurological/Psychological: No symptoms reported -: Yes All other systems reviewed and negative Physical Exam - Vital signs Vitals: Temp Pulse Resp BP Pulse Ox 98.6 F 93 18 103/42 L 95 09/25/19 23:31 09/25/19 23:31 09/25/19 23:31 09/25/19 23:31 09/25/19 23:31 - General General appearance: Alert In distress: None - HEENT Head: Normocephalic, Atraumatic Eyes: Normal Pupils: PERRL - Respiratory Respiratory status: No respiratory distress Chest status: Nontender Breath sounds: Normal Chest palpation: Normal - Cardiovascular Rhythm: Regular Heart sounds: Normal auscultation Murmur: No Friction rub: No Gallop: None auscultated - Abdominal Inspection: Other - Vesicular rash noted to LLQ Distension: No distension Bowel sounds: Normal Tenderness: Nontender - Abdomen soft Organomegaly: No organomegaly - Back Back: Normal, Nontender - Extremities General upper extremity: Normal inspection General lower extremity: Normal inspection - Neurological Neuro grossly intact: Yes Orientation: AAOx4 - Psychological Associated symptoms: Normal affect, Normal mood - Skin Skin irregularity: Rash - Vesicular erythematous rash in an dermatomal pattern mainly apparent on the skin in the region of the LLQ; appearance which is consistent with shingles Course - Re-evaluation Re-evalutation: 09/26/19 00:52 Diagnosis and plan of care discussed with patient. All questions were answered prior to discharge. Emergency signs and symptoms, reasons to return to the emergency department discussed with patient. - Vital Signs Vital signs: Temp Pulse Resp BP Pulse Ox 98.6 F 94 18 103/42 L 95 09/25/19 23:44 09/25/19 23:32 09/25/19 23:32 09/25/19 23:32 09/25/19 23:32 Discharge - Discharge Clinical Impression: Herpes zoster Qualifiers: Herpes zoster complications: unspecified herpes zoster complication Qualified Code(s): B02.8 - Zoster with other complications Condition: Good Disposition: HOME, SELF-CARE Additional Instructions: Return to the Emergency Department without delay if any worse. HOME CARE INSTRUCTIONS & INFORMATION: Thank you for choosing us for your medical needs. We hope you're satisfied with the care you received. After you leave, you must properly care for your problem and, at the same time, observe its progress. Any condition can change. Some illnesses can change rapidly over hours or days. If your condition worsens, return to the Emergency Department or see your physician promptly. ABOUT YOUR X-RAYS AND EKG'S: If you had an EKG or X-rays taken, they have been read by the Emergency Physician. The X-rays and EKG's will also be read by a Radiologist or Yarder Puncher within 24 hours. If discrepancies are noted, you will be notified by telephone. Please be certain the ED has a correct telephone number & address where you can be reached. Also, realize that some fractures or abnormalities do not show up on initial X-rays. If your symptoms continue, see your physician. ABOUT YOUR LABORATORY TEST: If you had laboratory tests, the results have been reviewed by the Emergency Physician. Some test results (for example cultures) may not be available for several days. You will be contacted if any test result shows you need additional treatment. Please be certain the ED has a correct telephone number and address where you can be reached. ABOUT YOUR MEDICATIONS: You will receive instructions on how to take your medicine on the prescription label you receive. Additional information may be provided by the Pharmacy. If you have questions afterwards, call the ED for clarification or further instructions. Some prescribed medications may cause drowsiness. Do not perform tasks such as driving a car or operating machinery without consulting your Pharmacist. If you feel you need a refill of pain medication, your condition will need re-evaluation. Please do not call for a refill of any medication. ABOUT YOUR SIGNATURE: Signature of this document acknowledges to followin. Understanding that you received emergency treatment and that you may be released before al medical problems are known or treated. Please be certain the ED has a correct phone number & address where you can be reached. 2. Acknowledgement that you will arrange for follow-up care as recommended. 3. Authorization for the Emergency Physician to provide information to your follow-up Physician in order to maximize your care. AT ANY TIME, IF YOUR SYMPTOMS CHANGE SIGNIFICANTLY OR WORSEN OR YOU DEVELOP NEW SYMPTOMS, RETURN TO THE EMERGENCY DEPARTMENT IMMEDIATELY FOR RE-EVALUATION. OUR GOAL IS TO PROVIDE EXCELLENT MEDICAL CARE! WE HOPE THAT WE HAVE MET YOUR EXPECTATIONS DURING YOUR EMERGENCY DEPARTMENT VISIT AND THAT YOU FEEL YOU HAVE RECEIVED EXCELLENT CARE! Shingles You have shingles. Shingles is caused by the chicken pox virus, The virus has been surviving dormant in a nerve cell since you had chicken pox years ago. The virus has spread down a nerve root to reach the skin. Typically, an band-like area of pain and skin sensitivity develops, then small blisters erupt in the area. Shingles lasts two or three weeks, but sometimes leaves persistent pain. You are contagious -- you can give children chicken pox. But you can't give anyone shingles. Antiviral medicines (such as acyclovir or famciclovir) can help, but the rash usually worsens for about a week. Pain medication is often given if the area hurts. Antihistamines such as Benadryl may be necessary for itching if it does not respond to soda baths and calamine lotion. Sometimes cortisone medicine or nerve-block shots are necessary if pain is severe. If the area remains severely painful as the sores heal, or if you suspect an infection developing in the sores, see your doctor. Prescriptions: Hydrocodone/Acetaminophen [Godfrey 5-325 mg Tablet] 1 tab PO Q6HP PRN #20 tablet PRN Reason: pain Acyclovir [Zovirax 800 mg Tablet] 800 mg PO 5XD 10 Days #50 tab Referrals: HARRIETT AU MD [Primary Care Provider] - 09/27/19 I personally performed the services described in the documentation, reviewed and edited the documentation which was dictated to the scribe in my presence, and it accurately records my words and actions.
== END 2019-09-26 01:34 | disposition home or self-care (01) ==
LOC: ER 23:25
DX: B02.8 Zoster with other complications (principal); R21 Rash and other nonspecific skin eruption; M79.605 Pain in left leg; I25.2 Old myocardial infarction
CPT/HCPCS: 99283; J3490

== ENCOUNTER → 2020-01-10 | Outpatient (CLI) | payer MEDICARE, OTHER ==
--- NOTE | 2020-01-10 10:33 | RADIOLOGY REPORT (SQ) ---
EXAM DESCRIPTION: CT CHEST WITH IMAGES COMPLETED DATE/TIME: 01/10/2020 10:07 am REASON FOR STUDY: R91.1 SOLITARY PULMONARY NODULE R91.1 SOLITARY PULMONARY NODULE Z12.31 ROBERTA HERNANDEZ MAMMOGRAM FOR MALIGNANT NEOPLASM OF LUPE COMPARISON: 11/04/2018 TECHNIQUE: CT scan of the chest performed using helical scanning technique with dynamic intravenous contrast injection. Images reviewed with lung, soft tissue and bone windows. Reconstructed coronal and sagittal MPR and MIP images reviewed. All images stored on PACS. All CT scanners at this facility use dose modulation, iterative reconstruction, and/or weight based d osing when appropriate to reduce radiation dose to as low as reasonably achievable (ALARA). [facility]: Dose Right [facility]: CareDose [facility]: Dose Right [facility]: Teradose 4D [facility]: Breathometer CONTRAST TYPE AND DOSE: contrast/concentration: Isovue 350.00 mmol/ml; Total Contrast Delivered: 80. 0 ml; Total Saline Delivered: 45.0 ml RENAL FUNCTION: Creatinine 1.1 RADIATION DOSE: CT Rad equipment meets quality standard of care and radiation dose reduction techniq ues were employed. CTDIvol: 5.8 mGy. DLP: 195 mGy-cm. . LIMITATIONS: None. FINDINGS: LUNGS AND PLEURA: Stable small right lower lobe pulmonary nodule. This measures just unde r 5 mm in greatest diameter. No new findings. No consolidation or pleural effusion. There is linea r scarring in the left base. HILAR AND MEDIASTINAL STRUCTURES: No identified masses or abnormal nodes. HEART AND VASCULAR STRUCTURES: No aneurysm or dissection. No central pulmonary emboli. No pericardi al effusion. HARDWARE: None in the chest. UPPER ABDOMEN: No significant findings. Limited exam. THYROID AND OTHER SOFT TISSUES: No masses. No adenopathy. BONES: Unchanged. OTHER: No other significant finding. IMPRESSION: Stable slightly less than 5 mm nodule in the right lower lobe. No new findings. COMMENT: [place] CRITERIA FOR FOLLOW-UP OF PULMONARY NODULES Incidentally detected new nodules in persons 35 or older. HIGH RISK: History of smoking or other known risk factors. <6 mm single solid nodule: LOW RISK: no routine followup. HIGH RISK: optional CT 12 mo. TECHNICAL DOCUMENTATION: JOB ID: [id number] Quality ID # [id number]: Final reports with documentation of one or more dose reduction techniques (e.g., Au tomated exposure control, adjustment of the mA and/or kV according to patient size, use of iterative reconstruction technique) 2010 [employer]- All Rights Reserved Reading location - IP/workstation name: [email or web address]
--- NOTE | 2020-01-10 14:00 | WOMENS IMAGING REPORT ---
EXAM DESCRIPTION: BILAT SCREENING MAMMO W/CAD IMAGES COMPLETED DATE/TIME: 01/10/2020 10:57 am REASON FOR STUDY: Z12.31 ENCOUNTER FOR SCREENING MAMMOGRAM FOR MALIGNANT NEOPLASM OF BREAST R91.1 S OLITARY PULMONARY NODULE Z12.31 ENCNTR SCREEN MAMMOGRAM FOR MALIGNANT NEOPLASM OF LUPE COMPARISON: 2014 and subsequent EXAM PARAMETERS: Standard craniocaudal and mediolateral oblique views of each breast recorded using digital acquisition. Read with the assistance of CAD. .[facility] - [employer] Sandblasting Supervisor Version 9.2 LIMITATIONS: None. FINDINGS: No suspicious masses, suspicious calcifications or architectural distortion. No areas of c oncern. IMPRESSION: NEGATIVE MAMMOGRAM. BIRADS 1 BREAST DENSITY: c. The breasts are heterogeneously dense, which may obscure small masses. BIRAD: ASSESSMENT: 1 NEGATIVE RECOMMENDATION: ROUTINE SCREENING COMMENT: The patient has been notified of the results by letter per MQSA requirements. Additional no tification policies are in place for contacting patient with suspicious or incomplete findings. Quality ID #[id number]: The [employer] recommends an annual screening mammogram for women aged 40 years or over. This facility utilizes a reminder system to ensure that all patients receive reminder letters, and/or direct phone calls for appointments. This includes reminders for routine scr eening mammograms, diagnostic mammograms, or other Breast Imaging Interventions when appropriate. Th is patient will be placed in the appropriate reminder system. TECHNICAL DOCUMENTATION: FINDING NUMBER: (1) ASSESSMENT: (1) JOB ID: [id number] 2010 [employer]- All Rights Reserved Reading location - IP/workstation name: [email or web address]
== END ==
LOC: RAD 09:45
PROVIDERS: ATTEND Physician Assistant
DX: Z12.31 Encounter for screening mammogram for malignant neoplasm of breast (principal); R91.1 Solitary pulmonary nodule
CPT/HCPCS: 71260; 77067; 82565

== ENCOUNTER 2020-01-31 09:32 | Emergency (ER) | payer MEDICARE, OTHER ==
[2020-01-31 10:21] LABS: APPEARANCE,URINE TURBID; BILIRUBIN,URINE NEGATIVE (NEGATIVE); COLOR,URINE YELLOW; GLUCOSE, URINE NEGATIVE (NEGATIVE); KETONES,URINE NEGATIVE (NEGATIVE); PROTEIN,URINE 100 mg/dL (NEGATIVE); URINE SPECIFIC GRAVITY 1.017; UROBILINOGEN,URINE NEGATIVE mg/dL (<2.0)
[2020-01-31] MEDS ORDERED: CEFTRIAXONE 1 GM/D5W RTU 1 GM/50 ML RTUPB IV ONE (10:55)
[2020-01-31] MEDS ORDERED: HYDROCODONE/ACETAMINOPHEN 5-325 MG TABLET PO ONE (10:55)
--- NOTE | 2020-01-31 10:59 | ER Document Report ---
ED GI/ - General Chief Complaint: Pain With Urination Stated Complaint: PELVIC PAIN Time Seen by Provider: 01/31/20 10:24 Primary Care Provider: PIERRE CORDERO PA [Primary Care Provider] - Follow up as needed Notes: HPI: 54-year-old female with past medical history as recorded including L5/S1 back fusion surgery 9 years ago, gastric bypass 3 years ago, who presents with some suprapubic abdominal pain and right flank pain for the last 2 days. She states pain with urination. No fevers or vomiting. No history of kidney stones. Nausea without vomiting. No diarrhea. No real aggravating relieving factors. No weakness of the legs. No pain that radiates down the legs. No trauma or falls. ROS: See HPI All other review of systems reviewed and otherwise negative Reviewed vital signs and nursing note as charted by RN. PHYSICAL EXAM: CONSTITUTIONAL: Alert and oriented and responds appropriately to questions. Well-appearing; well-nourished HEAD: Normocephalic; atraumatic CARD: Regular rate and rhythm; no murmurs; symmetric distal pulses RESP: Normal chest excursion without splinting or tachypnea; breath sounds clear and equal bilaterally; no wheezes, no rhonchi, no rales ABD/GI: Normal bowel sounds; non-distended; soft, only tender the suprapubic and right lower quadrant without any rebound or guarding. No palpable masses BACK: Midline back scars consistent with surgery with some right CVA tenderness. No midline tenderness, swelling, erythema, or induration EXT: Normal ROM in all joints; non-tender to palpation; no edema SKIN: No acute lesions noted NEURO: CN 2-12 intact; 5/5 bilateral upper and lower extremity strength with sensation intact to light touch; normal patellar reflexes. No foot drop PSYCH: The patient's mood and manner are appropriate. Grooming and personal hygiene are appropriate. TRAVEL OUTSIDE OF THE [place] IN LAST 30 DAYS: No - Related Data Allergies/Adverse Reactions: adhesive tape [Adhesive Tape] Allergy (Severe, Verified 01/31/20 09:52) Generalized rash Home Medications: cyclobenzaprine. amitriptyline. metformin. benadryl. lamotrigine. trazodone. cariprazine. linzess. benztropine. lyrica. adderall. tylenol 3. cephalexin. nitrofurantoin Past Medical History - Social History Smoking Status: Never Smoker Chew tobacco use (# tins/day): No Frequency of alcohol use: None Drug Abuse: None Family History: Reviewed & Not Pertinent Patient has homicidal ideation: No - Past Medical History Cardiac Medical History: Reports: Hx Heart Attack - pt. 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 Denies: Hx Pacemaker - Immunizations Immunizations up to date: Yes Hx Diphtheria, Pertussis, Tetanus Vaccination: No Physical Exam - Vital signs Vitals: Temp Pulse Resp BP Pulse Ox 98.5 F 102 H 16 90/59 L 97 01/31/20 09:43 01/31/20 09:43 01/31/20 09:43 01/31/20 09:43 01/31/20 09:43 Course - Re-evaluation Re-evalutation: Given the above history and physical examination, we will obtain basic labs, urine analysis, electrolytes, and reassess. I would like to assess for the possibility of urinary tract infection/pyelonephritis. Kidney stone infection is also in the possible differential as is appendicitis. Given the above hist ory and physical I do believe discitis, epidural abscess, osteomyelitis, spinal cord compression to be extremely unlikely. 01/31/20 10:58 Urine as recorded. I will perform a CT scan to evaluate for an infected kidney stone. Pain medications have been provided. Patient has a furniture painter. 01/31/20 12:54 Labs and imaging as recorded. Vital signs are stable. Antibiotics have been provided. Patient will be discharged home with strict return precautions and a course of antibiotics and follow-up with the primary care physician and furniture painter. Repeat exam is improved. - Vital Signs Vital signs: Temp Pulse Resp BP Pulse Ox 98.5 F 102 H 16 90/59 L 97 01/31/20 09:52 01/31/20 09:43 01/31/20 09:43 01/31/20 09:43 10/12/20 09:43 - Laboratory Result Diagrams: 01/31/20 12:04 01/31/20 12:04 Laboratory results interpreted by me: 01/31/20 01/31/20 09:40 12:04 BUN 26 H Est GFR ( Amer) 54 L Est GFR (MDRD) Non-Af 45 L Urine Protein 100 H Urine Blood MODERATE H Leukocyte Esterase Rfl LARGE H Discharge - Discharge Clinical Impression: Pyelonephritis Condition: Good Disposition: HOME, SELF-CARE Additional Instructions: Come back immediately for any increased pain, change in location or quality of pain, fevers or vomiting, or any other acute problems. Please make sure that you follow-up with your primary care physician for further evaluation and urine culture assessment. Please take the antibiotics as prescribed. Prescriptions: Cephalexin Monohydrate [Keflex 500 mg Capsule] 500 mg PO Q8H 10 Days #30 capsule Referrals: PIERRE CORDERO PA [Primary Care Provider] - Follow up as needed
[2020-01-31 12:17] LABS: ABSOLUTE BASOPHILS # (AUTO) 0.1 10^3/uL (0.0-0.2); ABSOLUTE EOSINOPHILS # (AUTO) 0.2 10^3/uL (0.0-0.6); ABSOLUTE LYMPHOCYTES (AUTO) 2.1 10^3/uL (0.5-4.7); ABSOLUTE MONOCYTES (AUTO) 0.8 10^3/uL (0.1-1.4); ABSOLUTE NEUT (AUTO) 5.8 10^3/uL (1.7-8.2); EOSINOPHILS % (AUTO) 2.7 % (0-6); HEMATOCRIT 37.2 % (36.0-47.0); HEMOGLOBIN 12.8 g/dL (12.0-15.5); LYMPHOCYTES % (AUTO) 23.5 % (13-45); MEAN CORPUSCULAR HEMOGLOBIN 30.3 pg (27.0-33.4); MEAN CORPUSCULAR HGB CONC 34.4 g/dL (32.0-36.0); MEAN CORPUSCULAR VOLUME 88 fl (80-97); MONOCYTES % (AUTO) 8.4 % (3-13); PLATELET COUNT 327 10^3/uL (150-450); RED BLOOD COUNT 4.23 10^6/uL (3.72-5.28); RED CELL DISTRIBUTION WIDTH 13.3 % (11.5-14.0); SEGMENTED NEUTROPHILS % (AUTO) 64.4 % (42-78); TOTAL CELLS COUNTED % (AUTO) 100 %
--- NOTE | 2020-01-31 12:19 | RADIOLOGY REPORT (SQ) ---
EXAM DESCRIPTION: CT ABD/PELVIS NO ORAL OR IV IMAGES COMPLETED DATE/TIME: 01/31/2020 11:55 am REASON FOR STUDY: 20; R flank pain;eval stones COMPARISON: 11/04/2018 TECHNIQUE: CT scan of the abdomen and pelvis performed without intravenous or oral contrast. Images reviewed with lung, soft tissue, and bone windows. Reconstructed coronal and sagittal MPR images revi ewed. All images stored on PACS. All CT scanners at this facility use dose modulation, iterative reconstruction, and/or weight based d osing when appropriate to reduce radiation dose to as low as reasonably achievable (ALARA). [facility]: Dose Right [facility]: CareDose [facility]: Dose Right [facility]: Teradose 4D [facility]: Smart Dry Lube RADIATION DOSE: CT Rad equipment meets quality standard of care and radiation dose reduction techniq ues were employed. CTDIvol: 5.9 mGy. DLP: 320 mGy-cm.mGy. LIMITATIONS: None. FINDINGS: LOWER CHEST: Mild pleural/ parenchymal scarring in the left base. NON-CONTRASTED LIVER, SPLEEN, ADRENALS: Evaluation limited by lack of IV contrast. No identified sign ificant masses. PANCREAS: No masses. No peripancreatic inflammatory changes. GALLBLADDER: No identified stones by CT criteria. No inflammatory changes to suggest cholecystitis. RIGHT KIDNEY AND URETER: No suspicious masses. Assessment limited by lack of IV contrast. No signif icant calcifications. No hydronephrosis or hydroureter. LEFT KIDNEY AND URETER: No suspicious masses. Assessment limited by lack of IV contrast. No signifi cant calcifications. No hydronephrosis or hydroureter. AORTA AND RETROPERITONEUM: No aneurysm. No retroperitoneal masses or adenopathy. BOWEL AND PERITONEAL CAVITY: Gastric bypass. Considerable retained stool in the left colon. No obvi ous bowel mass. APPENDIX: Normal. PELVIS, BLADDER, AND ABDOMINAL WALL:No abnormal masses. No free fluid. Bladder normal. BONES: Spinal hardware. OTHER: No other significant finding. IMPRESSION: There is no urinary pathology. The appendix is normal. Possible constipation. COMMENT: Quality ID # [id number]: Final reports with documentation of one or more dose reduction techniques (e.g., Automated exposure control, adjustment of the mA and/or kV according to patient size, use of iterative reconstruction technique) TECHNICAL DOCUMENTATION: JOB ID: [id number] [employer]- All Rights Reserved Reading location - IP/workstation name: [email or web address]
[2020-01-31 12:47] LABS: ANION GAP 9 (5-19); BLOOD UREA NITROGEN 26 mg/dL (7-20); CALCIUM 9.5 mg/dL (8.4-10.2); CARBON DIOXIDE 30 mmol/L (22-30); CHLORIDE 100 mmol/L (98-107); GLUCOSE 97 mg/dL (75-110); POTASSIUM 4.8 mmol/L (3.6-5.0)
[2020-01-31 13:12] VITALS: BP 109/74
== END 2020-01-31 13:10 | disposition home or self-care (01) ==
LOC: ER 09:32
DX: N12 Tubulo-interstitial nephritis, not specified as acute or chronic (principal); R11.0 Nausea; Z98.84 Bariatric surgery status; F31.9 Bipolar disorder, unspecified; F20.9 Schizophrenia, unspecified; M47.9 Spondylosis, unspecified; Z79.899 Other long term (current) drug therapy; Z79.84 Long term (current) use of oral hypoglycemic drugs; Z91.048 Other nonmedicinal substance allergy status
CPT/HCPCS: 99285; 96365; 36415; 87086; 85025; 87088; 80048; 81001; 87186; 74176; J0696; A9270

== ENCOUNTER 2020-02-25 16:53 | Emergency (ER) | payer MEDICARE, OTHER ==
[2020-02-25 17:13] VITALS: BP 145/94
[2020-02-25] MEDS ORDERED: IBUPROFEN 800 MG TABLET PO ONE (17:17)
--- NOTE | 2020-02-25 17:23 | ER Document Report ---
ED Fall - General Chief Complaint: Fall Injury Stated Complaint: FALL/SHOULDER,COLLERBONE PAIN Time Seen by Provider: 02/25/20 17:15 Primary Care Provider: [facility] [Provider Group] - Follow up as needed PIERRE CORDERO PA [Primary Care Provider] - Follow up as needed Mode of Arrival: Ambulatory Information source: Patient Notes: 54-year-old female presented ED for complaint of right clavicle shoulder humerus and elbow pain. She states she fell after she tripped over the dog this morning. She states she tried to get herself with ice but the pain continues to increase. She states she needs to make sure she has not broken anything. Has tenderness to the right clavicle shoulder humerus and elbow. Get x-rays treat with ibuprofen and then reassess. Constitutional: Negative for fever. HENT: Negative for sore throat. Eyes: Negative for visual changes. Cardiovascular: Negative for chest pain. Respiratory: Negative for shortness of breath. Gastrointestinal: Negative for abdominal pain, vomiting or diarrhea. Genitourinary: Negative for dysuria. Musculoskeletal: States too much pain to move the shoulder or elbow. She did fall landing on the shoulder and elbow this morning. She has significant tenderness to the clavicle. Skin: Negative for rash. Neurological: Negative for headaches, weakness or numbness. 10 point ROS negative except as marked above and in HPI. PHYSICAL EXAMINATION: GENERAL: Well-appearing, well-nourished and in no acute distress. HEAD: Atraumatic, normocephalic. EYES: Pupils equal round extraocular movements intact, conjunctiva are normal. ENT: Nares patent NECK: Normal range of motion LUNGS: No respiratory distress Musculoskeletal: Normal range of motion NEUROLOGICAL: Normal speech, normal gait. PSYCH: Normal mood, normal affect. SKIN: Warm, Dry, normal turgor, no rashes or lesions noted. TRAVEL OUTSIDE OF THE [place] IN LAST 30 DAYS: No - HPI Occurred: This morning Where: Home Context: Tripped - Tripped over dog Associated symptoms: None Location of injury/pain: Elbow, Shoulder, Upper extremity, Other - Clavicle Quality of pain: Sharp, Throbbing Severity: Moderate Pain Level: 3 - Related data Allergies/Adverse Reactions: adhesive tape [Adhesive Tape] Allergy (Severe, Verified 01/31/20 09:52) Generalized rash Past Medical History - Social History Smoking Status: Former Smoker Frequency of alcohol use: None Drug Abuse: None Family History: Reviewed & Not Pertinent Patient has suicidal ideation: No Patient has homicidal ideation: No - Past Medical History Cardiac Medical History: Reports: Hx Heart Attack - pt. 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 Skin Medical History: Reports None Psychiatric Medical History: Reports: Hx Bipolar Disorder, Hx Schizophrenia Traumatic Medical History: Reports: None Infectious Medical History: Reports: None Past Surgical History: Reports: Hx Gastric Bypass Surgery - 12/05, Hx Hysterectomy, Hx Oral Surgery - Teeth removed - Immunizations Immunizations up to date: Yes Hx Diphtheria, Pertussis, Tetanus Vaccination: No Physical Exam - Vital signs Vitals: Temp Pulse Resp BP Pulse Ox 98.6 F 102 H 16 145/94 H 99 02/25/20 17:12 02/25/20 17:12 02/25/20 17:12 02/25/20 17:12 02/25/20 17:12 Course - Re-evaluation Re-evalutation: 02/25/20 19:12 X-rays are negative for any acute findings. Patient was able to move the shoulder and elbow after the x-rays but it is still painful. She has been treated with a sling. She has been instructed on ibuprofen Tylenol shoulder exercises ice packs and warm packs. She will call orthopedics on Friday. Patient verbalized understanding of all these instructions and agreement with treatment plan. Patient was discharged home. - Vital Signs Vital signs: Temp Pulse Resp BP Pulse Ox 98.6 F 102 H 16 145/94 H 99 02/25/20 17:12 02/25/20 17:12 02/25/20 17:12 02/25/20 17:12 02/25/20 17:12 - Diagnostic Test Radiology reviewed: Image reviewed, Reports reviewed Discharge - Discharge Clinical Impression: Contusion of right elbow, initial encounter Fall Qualifiers: Encounter type: initial encounter Qualified Code(s): W19.XXXA - Unspecified fall, initial encounter Right shoulder injury Qualifiers: Encounter type: initial encounter Qualified Code(s): S49.91XA - Unspecified injury of right shoulder and upper arm, initial encounter Contusion of right clavicle Qualifiers: Encounter type: initial encounter Qualified Code(s): T14.8XXA - Other injury of unspecified body region, initial encounter Condition: Stable Disposition: HOME, SELF-CARE Additional Instructions: Shoulder Injury You have injured your shoulder. This usually results from stretching or tearing of the tendons during trauma. Time and protection are required in order to heal properly. Many injuries are quite disabling, and should be taken seriously. Initial treatment includes cold packs and a sling to rest the shoulder. The physician has assessed the seriousness of your injury, and has outlined a treatment plan. Understand that this treatment may change, depending on how you progress. If a re-examination was recommended, it is important that you follow up as instructed. Some shoulder injuries (such as partial tear of the rotator cuff) are only suspected after you've failed to improve. Call us if there's severe pain, numbness, or loss of function. CONTUSION: Your injury has resulted in a contusion -- a crushing of the deep tissues. No injury to important structures was detected during the physician's exam. Contusions vary in the amount of pain they cause, and in the length of time required for healing. Typically, the area will become bruised, and will remain painful to touch for two or three weeks. However, most patients are back to working and playing within a few days. After the initial period of rest and cold-packs, your symptoms (together with the doctor's recommendations) will determine how rapidly you can get back to full activity. Usually this means "do what feels okay, but don't do things that hurt." If re-examination was recommended, it's important to follow up as instructed. Call the doctor or return any time if pain increases, if swelling becomes severe, if you develop numbness or weakness in an injured extremity, or if any other alarming symptoms occur. Exercise Program for the Shoulder Since the shoulder moves in so many directions, the joint attachment is weak. Muscles provide most of the stability to the shoulder. You must exercise your shoulder to prevent painful instability or stiffening. PASSIVE - These may be begun within a few days of the injury. While standing, lean forward, allowing the arm to hang down towards the floor. Move the arm in small circles while slowly twisting your chest towards and away from the hanging arm. Do this for one minute. ACTIVE - These may be performed when the doctor gives permission. Begin with the arms at the sides. Raise the arms forward (shoulder's width apart) until they reach shoulder level. Then slowly swing both arms back until they are aiming straight out away from each other. Then bring them forward again, and finally, lower them to your sides. Repeat 20 to 30 times. As you improve, put weights in your hands for the exercise. Start with one pound, and work up to 10 pounds. Never use more than is comfortable. Athletes may work up to 30 pounds. Ibuprofen Ibuprofen is an excellent, safe drug for pain control. In addition, it has potent antiinflammatory effects which are beneficial, especially in the treatment of injuries, arthritis, or tendonitis. It's best to take ibuprofen with food. Persons with ulcer disease or allergy to aspirin should notify their physician of this before taking ibuprofen. Take the medication exactly as prescribed. Don't take additional doses unless instructed to do so by your doctor. If you develop wheezing, shortness of breath, hives, faintness, stomach pain, vomiting, or dark black stools, return for re-evaluation at once. USE OF TYLENOL (ACETAMINOPHEN): Acetaminophen may be taken for pain relief or fever control. It's much safer than aspirin, offering a wider range of "safe" dosages. It is safe during . Some brand names are Tylenol, Panadol, Datril, Anacin 3, Tempra, and Liquiprin. Acetaminophen can be repeated every four hours. The following are maximum recommended dosages: WEIGHT Dose Drops Elixir Chewable(80mg) (LBS.) drprs=droppers tsp=teaspoon 6 40 mg 0.4 ml (1/2) 6-11 80 mg 0.8 ml (full) tsp 1 tab 12-16 120 mg 1 1/2 drprs 3/4 tsp 1 1/2 tabs 17-23 160 mg 2 drprs 1 tsp 2 tabs 24-30 240 mg 3 drprs 1 1/2 tsp 3 tabs 30-35 320 mg 2 tsp 4 tabs 36-41 360 mg 2 1/4 tsp 4 1/2 tabs 42-47 400 mg 2 1/2 tsp 5 tabs 48-53 480 mg 3 tsp 6 tabs 54-59 520 mg 3 1/4 tsp 6 1/2 tabs 60-64 560 mg 3 1/2 tsp 7 tabs 65-70 600 mg 3 3/4 tsp 7 1/2 tabs 71-76 640 mg 4 tsp 8 tabs 77-82 720 mg 4 1/2 tsp 9 tabs 83-88 800 mg 5 tsp 10 tabs >89 pounds or adults 650 mg to 900 mg Acetaminophen can be repeated every four hours. Maximum dose not to exceed 4000 mg a day. These maximum recommended dosages are slightly higher than the dosages written on the product container, but these dosages are very safe and below the toxic dosage for acetaminophen. ICE PACKS: Apply ice packs frequently against the painful area. Many different schedules are recommended, such as "20 minutes on, 20 minutes off" or "one hour ice, two hours rest." If you need to work, you may need to go longer between ice treatments. You should plan to have the area ice packed AT LEAST one fourth of the time. The ice should be applied over the wrap, tape, or splint, or over a layer of cloth -- not directly against the skin. Some ice bags have a built-in cloth and can be put directly on the skin. WARM PACKS: After approximately two days, apply gentle heat (such as a heating pad or hot water bottle) for about 20 to 30 minutes about every two hours -- at least four times daily. Warmth and elevation will help you make a more rapid recovery, and will ease the pain considerably. Do not use HOT heat, and never apply heat for longer than 30 minutes. The continuous heat can invisibly damage skin and muscles -- even when no burn is seen on the surface. Damaged muscles can make you MORE sore. Have been treated with a sling for your shoulder injury. You still need to move your shoulder around and it is very important that you follow-up with orthopedi cs to ensure there is no ligament tendon or muscle damage. There is no bony damage noted on the x-ray. FOLLOW-UP CARE: If you have been referred to a physician for follow-up care, call the physician s office for an appointment as you were instructed or within the next two days. If you experience worsening or a significant change in your symptoms, notify the physician immediately or return to the Emergency Department at any time for re-evaluation. Forms: Elevated Blood Pressure Referrals: PIERRE CORDERO PA [Primary Care Provider] - Follow up as needed [facility] [Provider Group] - Follow up as needed
--- NOTE | 2020-02-25 18:15 | RADIOLOGY REPORT (SQ) ---
EXAM DESCRIPTION: ELBOW RIGHT OVER 2 VIEWS IMAGES COMPLETED DATE/TIME: 02/25/2020 6:01 pm REASON FOR STUDY: Fell hit shoulder and elbow clavicle COMPARISON: None. NUMBER OF VIEWS: Four views. TECHNIQUE: AP, lateral, and both oblique radiographic images acquired of the right elbow. LIMITATIONS: None. FINDINGS: MINERALIZATION: Normal. BONES: No acute fracture or dislocation. No worrisome bone lesions. JOINT: No effusion. SOFT TISSUES: No soft tissue swelling. No foreign body. OTHER: No other significant finding. IMPRESSION: NEGATIVE STUDY OF THE RIGHT ELBOW. NO RADIOGRAPHIC EVIDENCE OF ACUTE INJURY. TECHNICAL DOCUMENTATION: JOB ID: [id number] 2010 [employer]- All Rights Reserved Reading location - IP/workstation name: [email or web address]
--- NOTE | 2020-02-25 18:15 | RADIOLOGY REPORT (SQ) ---
EXAM DESCRIPTION: CLAVICLE RIGHT IMAGES COMPLETED DATE/TIME: 02/25/2020 6:01 pm REASON FOR STUDY: Fell hit shoulder and elbow clavicle COMPARISON: None. NUMBER OF VIEWS: Two views. TECHNIQUE: Frontal and angled images were acquired of the right clavicle. LIMITATIONS: None. FINDINGS: MINERALIZATION: Normal. BONES: No acute fracture or dislocation. No worrisome bone lesions. SOFT TISSUES: No obvious swelling or foreign body. OTHER: No other significant finding. IMPRESSION: NEGATIVE STUDY OF THE RIGHT CLAVICLE. NO RADIOGRAPHIC EVIDENCE OF ACUTE INJURY. TECHNICAL DOCUMENTATION: JOB ID: [id number] 2010 [employer]- All Rights Reserved Reading location - IP/workstation name: [email or web address]
--- NOTE | 2020-02-25 18:16 | RADIOLOGY REPORT (SQ) ---
EXAM DESCRIPTION: SHOULDER RIGHT 2 OR MORE VIEWS IMAGES COMPLETED DATE/TIME: 02/25/2020 6:01 pm REASON FOR STUDY: Fell hit shoulder and elbow clavicle COMPARISON: None. NUMBER OF VIEWS: Three views. TECHNIQUE: Internal rotation, external rotation, and Y view images acquired of the right shoulder. LIMITATIONS: None. FINDINGS: MINERALIZATION: Normal. BONES: No acute fracture. No worrisome bone lesions. JOINTS: No dislocation. VISUALIZED LUNGS AND RIBS: No pneumothorax. No rib fracture. SOFT TISSUES: No radiopaque foreign body. OTHER: No other significant finding. IMPRESSION: NEGATIVE STUDY OF THE RIGHT SHOULDER. NO RADIOGRAPHIC EVIDENCE OF ACUTE INJURY. TECHNICAL DOCUMENTATION: JOB ID: [id number] 2010 [employer]- All Rights Reserved Reading location - IP/workstation name: [email or web address]
--- NOTE | 2020-02-25 18:16 | RADIOLOGY REPORT (SQ) ---
EXAM DESCRIPTION: HUMERUS RIGHT IMAGES COMPLETED DATE/TIME: 02/25/2020 6:01 pm REASON FOR STUDY: Fell hit shoulder and elbow clavicle COMPARISON: None. NUMBER OF VIEWS: Two views. TECHNIQUE: Two radiographic images were acquired of the right humerus to include elbow and shoulder in at least one projection. LIMITATIONS: None. FINDINGS: MINERALIZATION: Normal. BONES: No acute fracture or dislocation. No worrisome bone lesions. SOFT TISSUES: No obvious swelling or foreign body. OTHER: No other significant finding. IMPRESSION: NEGATIVE STUDY OF THE RIGHT HUMERUS. NO RADIOGRAPHIC EVIDENCE OF ACUTE INJURY. TECHNICAL DOCUMENTATION: JOB ID: [id number] 2010 [employer]- All Rights Reserved Reading location - IP/workstation name: [email or web address]
== END 2020-02-25 19:15 | disposition home or self-care (01) ==
LOC: ER 16:53
DX: S40.011A Contusion of right shoulder, initial encounter (principal); S50.01XA Contusion of right elbow, initial encounter; M89.8X2 Other specified disorders of bone, upper arm; W01.0XXA Fall on same level from slipping, tripping and stumbling without subsequent striking against object, initial encounter; Y92.009 Unspecified place in unspecified non-institutional (private) residence as the place of occurrence of the external cause; Z91.048 Other nonmedicinal substance allergy status; Z87.891 Personal history of nicotine dependence; Z98.84 Bariatric surgery status
CPT/HCPCS: 99284; 73000; 73080; 73060; 73030; A9270